=== PATIENT | male | born 1945 | race Caucasian/White ===

== ENCOUNTER 2016-06-20 22:01 | Emergency (ER) | payer BC, MEDICARE, OTHER ==
[~2016-06-20] VITALS: Ht 175.3 cm; Wt 107.4 kg
[~2016-06-20 22:01] MED LIST: ABLUNK PO; BUPR100T8 PO; CHOL100027 PO; MIRA1TAB3 PO; POLY335019 PO; PRAV40TA2 PO; ROPI2TAB6 PO; SERT1TAB68 PO
[2016-06-20 22:04] VITALS: TEMP 36.4; Ht 175.3 cm; Wt 107.4 kg
--- NOTE | 2016-06-20 22:24 | EMERGENCY ROOM VISIT NOTE ---
History Report prepared by Maura: Becki Nick Under the Supervision of: Dr. Sanya Bull M.D. First contact with patient: 22:08 Chief Complaint: CONSTIPATION Stated Complaint: CONSTIPATION History of Present Illness The patient is a 70 year old male who presents to the Emergency Room with complaints of worsening constipation with onset 3-4 days ago. He rates his discomfort as an 8/10. The patient has not had a bowel movement in the past 3-4 days. He states that this is not unusual for him. Usually, the patient states that he will strain to go. However, currently he is unable to strain as he had a bladder sling put in place one morning ago at [facility]. The patient states that he is able to urinate. For the constipation, the patient has tried taking a suppository and a stool softener without relief. The patient denies fever, vomiting. Onset: 3-4 days ago Position: abdomen Symptom Intensity: 8/10 Quality: other (constipation) Timing: worsening Associated Symptoms: No fevers, No vomiting Review of Systems See HPI for pertinent positives & negatives. A total of 10 systems reviewed and were otherwise negative. Past Medical & Surgical Medical Problems: (1) Prostate ca Family History No pertinent family history Social History Smoking Status: Never Smoker Drug Use: none Marital Status: Housing Status: lives with family Current/Historical Medications Scheduled Aripiprazole (Abilify), 2.5 MG PO QPM Bupropion (Wellbutrin Sr), 100 MG PO BID Cholecalciferol (Vitamin D 1000 Unit), 2,000 INTER.UNIT PO QAM Ketoconazole (Topical) (Nizoral), 1 APPLN TOP 2XWK Naproxen (Naprosyn), 500 MG PO BID Pravastatin Sodium (Pravastatin Sodium), 40 MG PO QAM Ropinirole (Requip), 2 MG PO HS Sennosides-Docusate Sodium (Senokot S), 1 TAB PO BID Sertraline Hcl (Zoloft), 100 MG PO QPM Sulfa/Trimethoprim (Bactrim Ds 800MG/160MG), 1 TAB PO DAILY Scheduled PRN Acetaminophen (Tylenol), 1,000 MG PO Q6H PRN for Pain or Fever Oxycodone Ir (Roxicodone Ir), 5 MG PO Q4H PRN for Severe Pain Polyethylene Glycol 3350 (Miralax), 1 TBS PO DAILY PRN for Constipation Allergies Coded Allergies: Animal Dander (Verified Allergy, Unknown, per allergy testing, 06/20/16) NO KNOWN DRUG ALLERGIES (Verified Allergy, Unknown, NKDA, 06/20/16) Physical Exam Vital Signs Date Time Temp Pulse Resp B/P Pulse Ox O2 Delivery O2 Flow Rate FiO2 06/21/16 00:48 90 16 182/87 98 Room Air 06/20/16 22:04 36.4 84 20 141/80 96 Room Air Physical Exam GENERAL: Patient is in no acute distress. HEENT: No acute trauma, normocephalic atraumatic, mucous membranes moist, no nasal congestion, no scleral icterus. NECK: No stridor, no adenopathy, no meningismus, trachea is midline. LUNGS: Clear to auscultation bilaterally, no wheeze, no rhonchi, breath sounds equal. HEART: 2/6 systolic murmur with a regular rate and rhythm. ABDOMEN: Soft, nontender, bowel sounds positive, no hernias, no peritonitis. EXTREMITIES: No cyanosis or edema, full range of motion of all the joints without pain or difficulty, no signs for acute trauma. NEUROLOGIC: Oriented x 3, no acute motor or sensory deficits, no focal weakness. SKIN: No rash, no jaundice, no diaphoresis. GROIN: Contusion to the scrotum consistent with recent surgery, no cellulitis. RECTAL: Hard stool in the rectal vault, consistent with constipation. Medical Decision & Procedures ED Course 2210: The patient was evaluated in room A11. A complete history and physical exam was performed. 0021: Nursing staff is still working on an enema for the patient. 0101: Nursing staff continues to work on the enema for the patient. 0123: Per nursing staff, the patient's constipation has now been resolved. 0142: Reevaluated the patient. Discussed results and discharge instructions: He verbalized understanding and agreement. The patient is ready for discharge. Medical Decision The patient is a 70 year old male who presents to the ED with complaints of constipation. Differential diagnoses considered include: bowel obstruction, perirectal abscess, hernia, constipation, urinary retention. The patient presents with complaints of constipation. There was hard stool in the rectal vault by exam, no perirectal abscess. He did not have peritonitis, he was not febrile or toxic. No cellulitis in the scrotal area. The patient was given a soaps suds enema, he eventually had a large bowel movement and feels markedly improved. He is being discharged home. He was encouraged to take Senokot twice a day to prevent further constipation. Impression Primary Impression: Constipation Scribe Attestation The scribe's documentation has been prepared under my direction and personally reviewed by me in its entirety. I confirm that the note above accurately reflects all work, treatment, procedures, and medical decision making performed by me. Departure Information Dispostion Home / Self-Care Prescriptions Sennosides-Docusate Sodium (SENOKOT S) 1 Tab Tab 1 TAB PO BID, #30 TAB Prov: Sanya Bull M.D. 06/21/16 Referrals No Doctor, Assigned (PCP) Forms HOME CARE DOCUMENTATION FORM, IMPORTANT VISIT INFORMATION Patient Instructions My [facility] Additional Instructions senokot 2x per day to keep stools moving return if worsening
[2016-06-21] MEDS ORDERED: ABL/5 PO (00:26)
[2016-06-21] MEDS ORDERED: NAPR-1169 PO (00:27)
[2016-06-21] MEDS ORDERED: ACET-1256 PO (00:30)
[2016-06-21] MEDS ORDERED: OXYC1TAB3 PO (00:31)
[2016-06-21] MEDS ORDERED: SULF800T23 PO (00:33)
[2016-06-21] MEDS ORDERED: KETO2SHA5 TOP (00:34)
[2016-06-21] MEDS ORDERED: SENN-65 PO (01:27)
[2016-06-21 01:52] VITALS: BP 153/70; PULSE 71; O2SAT 97
[2016-07-10] MEDS ORDERED: DOCU1TAB6 PO (10:55)
[2016-07-10] MEDS ORDERED: PSYL58.618 PO (10:55)
[2016-10-08] MEDS ORDERED: CHOL20009 PO (09:22)
[2016-10-08] MEDS ORDERED: OMEP20CA9 PO (09:22)
[2016-10-08] MEDS ORDERED: SERT-234 PO (09:22)
[2016-11-21] MEDS ORDERED: ACET-749 PO (08:38)
[2016-11-21] MEDS ORDERED: ABL/5 PO (08:38)
[2017-01-12] MEDS ORDERED: DXY100 PO (14:59)
== END 2016-06-21 01:59 | disposition home or self-care (01) ==
LOC: C.EDB 22:02 → C.EDA 06-21 01:59
DX: K59.00 Constipation, unspecified (principal); Z85.46 Personal history of malignant neoplasm of prostate; Z79.899 Other long term (current) drug therapy

== ENCOUNTER → 2016-07-17 | Day surgery (SDC) | payer MEDICARE ==
[2016-07-10 10:57] VITALS: BMI 33.0
[~2016-07-17] VITALS: Ht 175.3 cm; Wt 104.5 kg
[~2016-07-17] MED LIST changes: +ABL/5 PO; -ABLUNK PO; +ACET-1256 PO; +ACET-749 PO; +ARIP2TAB3 PO; +ATROPINE SULFATE 0.1 MG/ML 5ML SYR IV PRN; +CHOL20009 PO; +DOCU1TAB6 PO; +DXY100 PO; +EpHEDrine SULFATE INJ 50 MG/ML AMP IV PRN; +KETO2SHA5 TOP; +LIDOCAINE HCL 2% 2 ML VIAL (20MG/ML) ONE; +MELO7.5T5 PO; +MIDAZOLAM HCL 1 MG/ML 2ML VIAL ONE; -MIRA1TAB3 PO; +NAPR-1169 PO; +OMEP20CA9 PO; +ONDANSETRON INJ 2 MG/ML 2 ML VIAL ONE; +PROPOFOL IV EMULSION 10 MG/ML 20 ML VIAL IV ONE; +PSYL58.618 PO; +SERT-234 PO; +SODIUM CHLORIDE 0.9% 500ML 500 ML IV ONE; +WLLSR150 PO
[2016-07-17 10:24] VITALS: Ht 175.3 cm; Wt 104.5 kg
[2016-07-17 10:36] VITALS: TEMP 36.7
--- NOTE | 2016-07-17 11:01 | Endo History and Physical ---
History & Physical Date of Service: Jul 17, 2016. Chief Complaint: melena Referring Physician: Caesar MACIAS History of Present Illness 71 yo presenting for EGD due to melena Past Medical History Arthritis, Anxiety, Reflux, Cancer, High Cholesterol, Sleep Apnea, Depression Past Surgical History Hx Cardiac Surgery: No Hx Internal Defibrillator: No Hx Pacemaker: No Hx Abdominal Surgery: No Hx of Implantable Prosthesis: No Hx Post-Op Nausea and Vomiting: No Hx Cancer Surgery: Yes (PROSTATECTOMY, MELANOMA REMOVAL) Hx Thoracic Surgery: No Hx Orthopedic: No Hx Urinary Tract Surgery: Yes (CYSTOSCOPIES, BLADDER SLING) Family History None Social History Smoking Status: Never Smoker Hx Substance Use: No Hx Alcohol Use: Yes (OCCASIONAL) Allergies Coded Allergies: Animal Dander (Verified Allergy, Unknown, per allergy testing, 07/17/16) NO KNOWN DRUG ALLERGIES (Verified Allergy, Unknown, NKDA, 07/17/16) Current Medications Reported Home Medications Medications Dose Route/Sig Max Daily Dose Days Date Category Metamucil [employer] Fib (Psyllium) 63 % Pow 1 Tsp PO BID 07/10/16 Reported Docusate Sodium 100 Mg Tab 1 Tab PO BID 07/10/16 Reported Nizoral (Ketoconazole (Topical)) 2 % Sha 1 Appln TOP 2XWK 06/21/16 Reported Tylenol (Acetaminophen) 500 Mg Tab 1,000 Mg PO Q6H PRN 06/21/16 Reported Naprosyn (Naproxen) 500 Mg Tab 500 Mg PO BID 06/21/16 Reported Abilify (Aripiprazole) 5 Mg Tab 2.5 Mg PO QPM 06/21/16 Reported Wellbutrin Sr (Bupropion HCl) 100 Mg Ertab 100 Mg PO BID 04/20/14 Reported Miralax (Polyethylene Glycol 3350) 1 Pow Pow 1 Tbs PO DAILY PRN 04/03/14 Reported Zoloft (Sertraline Hcl) 100 Mg Tab 100 Mg PO QPM 04/03/14 Reported Requip (Ropinirole HCl) 2 Mg Tab 2 Mg PO TID 04/03/14 Reported Pravastatin Sodium 40 Mg Tab 40 Mg PO QAM 04/03/14 Reported Vitamin D 1000 Unit (Cholecalciferol) 1,000 Unit Cap 2,000 Inter.unit PO QAM 07/16/11 Reported Vital Signs Weight (Kilograms): 104.55 Height (Feet): 5 Height (Inches): 9 Date Time Temp Pulse Resp B/P Pulse Ox O2 Delivery O2 Flow Rate FiO2 07/17/16 10:36 36.7 74 18 141/74 97 Room Air Physical Exam General Appearance: WD/WN, no apparent distress Respiratory/Chest: Respiratory effort: no dyspnea Auscultation: breath sounds normal, CTA except as noted, no wheezing Cardiovascular: Apical Impulse: not displaced Heart Auscultation: RRR, normal S1, normal S2 Abdomen: Bowel Sounds: normal Inspection & Palpation: soft, non-distended Assessment and Plan 71 yo presenting for EGD for melena
--- NOTE | 2016-07-17 11:20 | GI REPORT ---
Procedure Date: 07/17/2016 10:42 AM Procedure: Upper GI endoscopy Indications: Melena Medicines: General Anesthesia Complications: No immediate complications. Estimated blood loss: None. Estimated Blood Loss: Estimated blood loss: none. Procedure: Pre-Anesthesia Assessment: - Pre-Anesthesia Assessment: - Prior to the procedure, a History and Physical was performed, and patient medications, allergies and sensitivities were reviewed. The patient's tolerance of previous anesthesia was reviewed. Please see Photorank for complete details. - The risks and benefits of the procedure and the sedation options and risks were discussed with the patient. All questions were answered and informed consent was obtained. - Patient identification and proposed procedure were verified prior to the procedure by the physician and the nurse. The procedure was verified in the pre-procedure area in the procedure room. After obtaining informed consent, the endoscope was passed carefully and meticuously under direct vision and only advanced when the lumen was clearly identified, C02 insuflation was utilized throughout the entirity of the procedure. Throughout the procedure, the patient's blood pressure, pulse, and oxygen saturations were monitored continuously. After obtaining informed consent, the endoscope was passed under direct vision. Throughout the procedure, the patient's blood pressure, pulse, and oxygen saturations were monitored continuously. The Scope was introduced through the mouth, and advanced to the second part of duodenum. The upper GI endoscopy was accomplished without difficulty. The patient tolerated the procedure well. Findings: The examined esophagus was normal. One non-bleeding superficial gastric ulcer with a clean ulcer base (Migel Class III) was found in the prepyloric region of the stomach. The lesion was 3 mm in largest dimension. The examined duodenum was normal. No other significant abnormalities were identified in a careful examination of the stomach. Biopsies were taken with a cold forceps for Helicobacter pylori testing. Impression: - Normal esophagus. - Non-bleeding gastric ulcer with a clean ulcer base (Migel Class III). - Normal examined duodenum. - Biopsies were taken with a cold forceps for Helicobacter pylori testing. Recommendation: - Await pathology results. - Discharge patient to home (with escort). - Use Prilosec (omeprazole) 20 mg PO BID for 2 months. - Avoid NSAIDs Yuan Castro MD 07/17/2016 11:19:37 AM This report has been signed electronically. Note Initiated On: 07/17/2016 10:42 AM I attest to the content of the Intraoperative Record and orders documented therein, exceptions below
--- NOTE | 2016-07-17 11:23 | Discharge Instructions ---
Endoscopy Patient Instructions Date / Procedure(s) Performed Jul 17, 2016. EGD Allergy Information Coded Allergies: Animal Dander (Verified Allergy, Unknown, per allergy testing, 07/17/16) NO KNOWN DRUG ALLERGIES (Verified Allergy, Unknown, NKDA, 07/17/16) Discharge Date / Findings Jul 17, 2016. One small gastric ulcer-likely cause of symptoms-biopsied Recommendations - Await pathology results. - Discharge to home (with escort). - Increase Prilosec (omeprazole) 20 mg PO BID for 2 months. - Avoid NSAIDs Provider Instructions Activity Restrictions - No exercising or heavy lifting for 24 hours. - Do not drink alcohol the day of the procedure. - Do not drive a car or operate machinery until the day after the procedure. - Do not make any important decisions or sign important papers in 24 hours after the procedure. Following Day: - Return to full activity which may include returning to work/school. Diet Start your diet with liquids and light foods (jello, soup, juice, toast). Then eat your usual diet if not nauseated. Treatment For Common After Affects For mild abdominal pain, bloating, or excessive gas: - Rest - Eat lightly - Lie on right side Follow-Up Information Follow-up with A Stefani MACIAS as scheduled Anesthesia Information What You Should Know You have had a procedure that required some medicine to reduce anxiety and discomfort. This treatment is called moderate sedation. After receiving the treatment, you may be sleepy, but you will be able to breathe on your own. The effects of the treatment may last for several hours. Follow these instructions along with Activity/Diet recommendations noted above: * Do NOT do anything where dizziness or clumsiness would be dangerous. * Rest quietly at home today, then you can be up and about tomorrow. * Have a responsible person stay with you the rest of today. * You may have had an I.V. today. If so, you may take the dressing off later today. Recommendations Call your doctor if: * Trouble breathing * Continuous vomiting for more than 24 hours * Temperature above 101 degrees * Severe abdominal pain or bloating * Pain not relieved by pain medicine ordered * There is increased drainage or redness from any incision * A large amount of rectal bleeding greater than 2-3 tablespoons. (If you had a polyp/s removed or have hemorrhoids, a small amount of blood - from the rectum is to be expected.) * You have any unanswered questions or concerns. IN THE EVENT OF A SERIOUS EMERGENCY, GO TO THE NEAREST EMERGENCY ROOM Your discharge instructions were prepared by provider Yuan Castro. Patient Instructions Signature Page Jeremy Mccullough Patient (or Guardian) Signature/Date: I have read and understand the instructions given to me by my caregivers. Caregiver/RN/Doctor Signature/Date: The above-named patient and/or guardian has received patient instructions on this date. + Original Patient Signature Page (only) stays with chart. Please make copy for patient.
--- NOTE | 2016-07-17 11:28 | Anesthesiology Progress Note ---
Anesthesia Post Op Note Date & Time Jul 17, 2016 at 11:27 Vital Signs Pain Intensity: 0 Vital Signs Past 12 Hours Date Time Temp Pulse Resp B/P Pulse Ox O2 Delivery O2 Flow Rate FiO2 07/17/16 11:21 69 18 106/63 96 Room Air 07/17/16 10:36 36.7 74 18 141/74 97 Room Air Notes Mental Status: alert / awake / arousable, participated in evaluation Pt Amnestic to Procedure: Yes Nausea / Vomiting: adequately controlled Pain: adequately controlled Airway Patency, RR, SpO2: stable & adequate BP & HR: stable & adequate Hydration State: stable & adequate Anesthetic Complications: no major complications apparent
[2016-07-17 11:51] VITALS: BP 122/67; PULSE 68; O2SAT 96
== END | disposition home or self-care (01) ==
LOC: C.GI 10:12
PROVIDERS: ATTEND Internal Medicine
DX: K92.1 Melena (principal); K25.9 Gastric ulcer, unspecified as acute or chronic, without hemorrhage or perforation; K29.50 Unspecified chronic gastritis without bleeding; I10 Essential (primary) hypertension; E78.5 Hyperlipidemia, unspecified; E78.00 Pure hypercholesterolemia, unspecified; F32.9 Major depressive disorder, single episode, unspecified; Z79.899 Other long term (current) drug therapy; Z85.46 Personal history of malignant neoplasm of prostate; G47.33 Obstructive sleep apnea (adult) (pediatric); E66.9 Obesity, unspecified; Z68.33 Body mass index [BMI] 33.0-33.9, adult; Z90.89 Acquired absence of other organs; Z98.890 Other specified postprocedural states

== ENCOUNTER → 2016-10-16 | Day surgery (SDC) | payer MEDICARE ==
[2016-10-08 09:22] VITALS: Ht 176.5 cm; Wt 104.5 kg
[~2016-10-16] VITALS: Ht 176.5 cm; Wt 104.5 kg
[~2016-10-16] MED LIST changes: -ARIP2TAB3 PO; -ATROPINE SULFATE 0.1 MG/ML 5ML SYR IV PRN; -CHOL100027 PO; -DXY100 PO; -EpHEDrine SULFATE INJ 50 MG/ML AMP IV PRN; -MELO7.5T5 PO; -MIDAZOLAM HCL 1 MG/ML 2ML VIAL ONE; -NAPR-1169 PO; -ONDANSETRON INJ 2 MG/ML 2 ML VIAL ONE; -SERT1TAB68 PO; -WLLSR150 PO
--- NOTE | 2016-10-16 10:10 | Endo History and Physical ---
History & Physical Date of Service: Oct 16, 2016. Chief Complaint: black stools, constipation Referring Physician: Dr. Sigala History of Present Illness 71 yo presenting for colonoscopy for rectal bleeding and constipation-no alarm symptoms. Past Medical History Arthritis, Anxiety, Reflux, Cancer, High Cholesterol, Sleep Apnea, Depression Past Surgical History Hx Cardiac Surgery: No Hx Internal Defibrillator: No Hx Pacemaker: No Hx Abdominal Surgery: No Hx of Implantable Prosthesis: No Hx Post-Op Nausea and Vomiting: No Hx Cancer Surgery: Yes (PROSTATECTOMY, MELANOMA REMOVAL) Hx Thoracic Surgery: No Hx Orthopedic: No Hx Urinary Tract Surgery: Yes (CYSTOSCOPIES, BLADDER SLING) Family History None Social History Smoking Status: Never Smoker Hx Substance Use: No Hx Alcohol Use: Yes (OCCASIONAL) Allergies Coded Allergies: Animal Dander (Verified Allergy, Unknown, per allergy testing, 10/16/16) NO KNOWN DRUG ALLERGIES (Verified Allergy, Unknown, NKDA, 10/16/16) Current Medications Reported Home Medications Medications Dose Route/Sig Max Daily Dose Days Date Category Zoloft (Sertraline HCl) 100 Mg Tab 100 Mg PO QAM 10/08/16 Reported Vitamin D (Cholecalciferol) 2,000 Unit Tab 1 Tab PO QAM 10/08/16 Reported Prilosec (Omeprazole) 20 Mg Cap 20 Mg PO BID 10/08/16 Reported Metamucil [employer] Fib (Psyllium) 63 % Pow 1 Tsp PO BID 07/10/16 Reported Docusate Sodium 100 Mg Tab 1 Tab PO BID 07/10/16 Reported Nizoral (Ketoconazole (Topical)) 2 % Sha 1 Appln TOP 2XWK 06/21/16 Reported Tylenol (Acetaminophen) 500 Mg Tab 1,000 Mg PO Q6H PRN 06/21/16 Reported Abilify (Aripiprazole) 5 Mg Tab 2.5 Mg PO QPM 06/21/16 Reported Wellbutrin Sr (Bupropion HCl) 100 Mg Ertab 100 Mg PO BID 04/20/14 Reported Miralax (Polyethylene Glycol 3350) 1 Pow Pow 1 Tbs PO DAILY PRN 04/03/14 Reported Requip (Ropinirole HCl) 2 Mg Tab 2 Mg PO TID 04/03/14 Reported Pravastatin Sodium 40 Mg Tab 40 Mg PO QAM 04/03/14 Reported Vital Signs Weight (Kilograms): 104.55 Height (Feet): 5 Height (Inches): 9.5 Date Time Temp Pulse Resp B/P (MAP) Pulse Ox O2 Delivery O2 Flow Rate FiO2 10/16/16 09:45 37 65 16 131/83 (99) 97 Room Air Physical Exam General Appearance: WD/WN, no apparent distress Respiratory/Chest: Respiratory effort: no dyspnea Auscultation: breath sounds normal, CTA except as noted, no wheezing Cardiovascular: Apical Impulse: not displaced Heart Auscultation: RRR, normal S1, normal S2 Abdomen: Bowel Sounds: normal Inspection & Palpation: soft, non-distended Assessment and Plan 71 yo presenting for colonoscopy for rectal bleeding
--- NOTE | 2016-10-16 11:00 | GI REPORT ---
Procedure Date: 10/16/2016 10:06 AM Procedure: Colonoscopy Indications: Change in bowel habits, Constipation Medicines: General Anesthesia Complications: No immediate complications. Estimated blood loss: None. Estimated Blood Loss: Estimated blood loss: none. Procedure: Pre-Anesthesia Assessment: - Pre-Anesthesia Assessment: - Prior to the procedure, a History and Physical was performed, and patient medications, allergies and sensitivities were reviewed. The patient's tolerance of previous anesthesia was reviewed. Please see bContext for complete details. - The risks and benefits of the procedure and the sedation options and risks were discussed with the patient. All questions were answered and informed consent was obtained. - Patient identification and proposed procedure were verified prior to the procedure by the physician and the nurse. The procedure was verified in the pre-procedure area in the procedure room. After obtaining informed consent, the endoscope was passed carefully and meticuously under direct vision and only advanced when the lumen was clearly identified, C02 insuflation was utilized throughout the entirity of the procedure. Throughout the procedure, the patient's blood pressure, pulse, and oxygen saturations were monitored continuously. After I obtained informed consent, the scope was passed under direct vision. Throughout the procedure, the patient's blood pressure, pulse, and oxygen saturations were monitored continuously. The scope was introduced through the anus and advanced to the hepatic flexure. The colonoscopy was performed without difficulty. The patient tolerated the procedure well. The quality of the bowel preparation was inadequate. Findings: Stool was found in the entire colon. A 3 mm polyp was found in the descending colon. The polyp was sessile. The polyp was removed with a cold snare. Resection and retrieval were complete. Impression: - Preparation of the colon was inadequate. - Stool in the entire examined colon. - One 3 mm polyp in the descending colon, removed with a cold snare. Resected and retrieved. Recommendation: - Await pathology results. - Repeat colonoscopy with 2 day prep at appointment to be scheduled because the bowel preparation was poor. Yuan Castro MD 10/16/2016 11:00:13 AM This report has been signed electronically. Note Initiated On: 10/16/2016 10:06 AM I attest to the content of the Intraoperative Record and orders documented therein, exceptions below
--- NOTE | 2016-10-16 11:04 | Discharge Instructions ---
Endoscopy Patient Instructions Date / Procedure(s) Performed Oct 16, 2016. Colonoscopy Allergy Information Coded Allergies: Animal Dander (Verified Allergy, Unknown, per allergy testing, 10/16/16) NO KNOWN DRUG ALLERGIES (Verified Allergy, Unknown, NKDA, 10/16/16) Discharge Date / Findings Oct 16, 2016. Poor Prep leading to an incomplete examination Procedure will need to be rescheduled due to prep quality One small polyp removed Miralax once daily to twice daily for constipation in the interim. Provider Instructions Activity Restrictions - No exercising or heavy lifting for 24 hours. - Do not drink alcohol the day of the procedure. - Do not drive a car or operate machinery until the day after the procedure. - Do not make any important decisions or sign important papers in 24 hours after the procedure. Following Day: - Return to full activity which may include returning to work/school. Diet Start your diet with liquids and light foods (jello, soup, juice, toast). Then eat your usual diet if not nauseated. Treatment For Common After Affects For mild abdominal pain, bloating, or excessive gas: - Rest - Eat lightly - Lie on right side Follow-Up Information Follow-up with Dr. Sigala as scheduled Anesthesia Information What You Should Know You have had a procedure that required some medicine to reduce anxiety and discomfort. This treatment is called moderate sedation. After receiving the treatment, you may be sleepy, but you will be able to breathe on your own. The effects of the treatment may last for several hours. Follow these instructions along with Activity/Diet recommendations noted above: * Do NOT do anything where dizziness or clumsiness would be dangerous. * Rest quietly at home today, then you can be up and about tomorrow. * Have a responsible person stay with you the rest of today. * You may have had an I.V. today. If so, you may take the dressing off later today. Recommendations Call your doctor if: * Trouble breathing * Continuous vomiting for more than 24 hours * Temperature above 101 degrees * Severe abdominal pain or bloating * Pain not relieved by pain medicine ordered * There is increased drainage or redness from any incision * A large amount of rectal bleeding greater than 2-3 tablespoons. (If you had a polyp/s removed or have hemorrhoids, a small amount of blood - from the rectum is to be expected.) * You have any unanswered questions or concerns. IN THE EVENT OF A SERIOUS EMERGENCY, GO TO THE NEAREST EMERGENCY ROOM Your discharge instructions were prepared by provider Yuan Castro. Patient Instructions Signature Page Jeremy Mccullough Patient (or Guardian) Signature/Date: I have read and understand the instructions given to me by my caregivers. Caregiver/RN/Doctor Signature/Date: The above-named patient and/or guardian has received patient instructions on this date. + Original Patient Signature Page (only) stays with chart. Please make copy for patient.
--- NOTE | 2016-10-16 11:16 | Anesthesiology Progress Note ---
Anesthesia Post Op Note Date & Time Oct 16, 2016 at 11:16 Vital Signs Pain Intensity: 0 Vital Signs Past 12 Hours Date Time Temp Pulse Resp B/P (MAP) Pulse Ox O2 Delivery O2 Flow Rate FiO2 10/16/16 11:13 70 18 138/92 (107) 97 Room Air 10/16/16 10:57 71 16 119/66 (83) 97 Room Air 10/16/16 09:45 37 65 16 131/83 (99) 97 Room Air Notes Mental Status: alert / awake / arousable, participated in evaluation Pt Amnestic to Procedure: Yes Nausea / Vomiting: adequately controlled Pain: adequately controlled Airway Patency, RR, SpO2: stable & adequate BP & HR: stable & adequate Hydration State: stable & adequate Anesthetic Complications: no major complications apparent
[2016-10-16 11:35] VITALS: BP 145/91; PULSE 71; O2SAT 97
== END | disposition home or self-care (01) ==
LOC: C.GI 09:23
PROVIDERS: ATTEND Internal Medicine
DX: K62.5 Hemorrhage of anus and rectum (principal); K59.00 Constipation, unspecified; D12.4 Benign neoplasm of descending colon; M19.90 Unspecified osteoarthritis, unspecified site; K21.9 Gastro-esophageal reflux disease without esophagitis; E78.00 Pure hypercholesterolemia, unspecified; G47.30 Sleep apnea, unspecified; F32.9 Major depressive disorder, single episode, unspecified; Z90.79 Acquired absence of other genital organ(s); Z85.820 Personal history of malignant melanoma of skin

== ENCOUNTER → 2016-11-27 | Day surgery (SDC) | payer MEDICARE ==
[2016-11-21 08:39] VITALS: Ht 176.5 cm; Wt 104.5 kg
[~2016-11-27] VITALS: Ht 176.5 cm; Wt 104.5 kg
[~2016-11-27] MED LIST changes: -ACET-1256 PO; -PSYL58.618 PO
[2016-11-27 08:57] VITALS: TEMP 36.1
--- NOTE | 2016-11-27 09:06 | Endo History and Physical ---
History & Physical Date of Service: Nov 27, 2016. Chief Complaint: MELENA Referring Physician: DR SANTORO History of Present Illness 71 yo presenting for EGD and Colonoscopy for melena-no current symptoms. Past Medical History Arthritis, Anxiety, Reflux, Cancer, High Cholesterol, Sleep Apnea, Depression Past Surgical History Hx Cardiac Surgery: No Hx Internal Defibrillator: No Hx Pacemaker: No Hx Abdominal Surgery: No Hx Post-Op Nausea and Vomiting: No Hx Cancer Surgery: Yes (PROSTATECTOMY, MELANOMA REMOVAL) Hx Thoracic Surgery: No Hx Orthopedic: No Hx Urinary Tract Surgery: Yes (CYSTOSCOPIES, BLADDER SLING) Family History None Social History Smoking Status: Never Smoker Hx Substance Use: No Hx Alcohol Use: Yes (OCCASIONAL) Allergies Coded Allergies: Animal Dander (Verified Allergy, Unknown, per allergy testing, 11/27/16) NO KNOWN DRUG ALLERGIES (Verified Allergy, Unknown, NKDA, 11/27/16) Current Medications Reported Home Medications Medications Dose Route/Sig Max Daily Dose Days Date Category Abilify (Aripiprazole) 5 Mg Tab 5 Mg PO QPM 11/21/16 Reported Zoloft (Sertraline HCl) 100 Mg Tab 100 Mg PO HS 10/08/16 Reported Vitamin D (Cholecalciferol) 2,000 Unit Tab 1 Tab PO QAM 10/08/16 Reported Prilosec (Omeprazole) 20 Mg Cap 20 Mg PO BID 10/08/16 Reported Docusate Sodium 100 Mg Tab 1 Tab PO BID 07/10/16 Reported Nizoral (Ketoconazole (Topical)) 2 % Sha 1 Appln TOP 2XWK PRN 06/21/16 Reported Wellbutrin Sr (Bupropion HCl) 100 Mg Ertab 100 Mg PO BID 04/20/14 Reported Miralax (Polyethylene Glycol 3350) 1 Pow Pow 2 Dose PO BID 04/03/14 Reported Requip (Ropinirole HCl) 2 Mg Tab 2 Mg PO TID 04/03/14 Reported Pravastatin Sodium 40 Mg Tab 40 Mg PO QAM 04/03/14 Reported Vital Signs Weight (Kilograms): 104.55 Height (Feet): 5 Height (Inches): 9.5 Date Time Temp Pulse Resp B/P (MAP) Pulse Ox O2 Delivery O2 Flow Rate FiO2 11/27/16 08:57 36.1 75 20 149/76 (100) 99 Room Air Physical Exam General Appearance: WD/WN, no apparent distress Respiratory/Chest: Respiratory effort: no dyspnea Auscultation: breath sounds normal, CTA except as noted Cardiovascular: Apical Impulse: not displaced Heart Auscultation: RRR, normal S1, normal S2 Abdomen: Bowel Sounds: normal Inspection & Palpation: soft Assessment and Plan 71 yo presenting for EGD/Colonoscopy for melena
--- NOTE | 2016-11-27 10:18 | Discharge Instructions ---
Endoscopy Patient Instructions Date / Procedure(s) Performed Nov 27, 2016. Colonoscopy, EGD Allergy Information Coded Allergies: Animal Dander (Verified Allergy, Unknown, per allergy testing, 11/27/16) NO KNOWN DRUG ALLERGIES (Verified Allergy, Unknown, NKDA, 11/27/16) Discharge Date / Findings Nov 27, 2016. EGD -Normal Exam -No evidence of active or recent bleeding Colonoscopy -Suboptimal prep -No evidence of active or recent bleeding -Two small polyps were completely removed You will be contacted on pathology results Provider Instructions Activity Restrictions - No exercising or heavy lifting for 24 hours. - Do not drink alcohol the day of the procedure. - Do not drive a car or operate machinery until the day after the procedure. - Do not make any important decisions or sign important papers in 24 hours after the procedure. Following Day: - Return to full activity which may include returning to work/school. Diet Start your diet with liquids and light foods (jello, soup, juice, toast). Then eat your usual diet if not nauseated. Treatment For Common After Affects For mild abdominal pain, bloating, or excessive gas: - Rest - Eat lightly - Lie on right side Follow-Up Information Follow-up with DR SANTORO as scheduled Anesthesia Information What You Should Know You have had a procedure that required some medicine to reduce anxiety and discomfort. This treatment is called moderate sedation. After receiving the treatment, you may be sleepy, but you will be able to breathe on your own. The effects of the treatment may last for several hours. Follow these instructions along with Activity/Diet recommendations noted above: * Do NOT do anything where dizziness or clumsiness would be dangerous. * Rest quietly at home today, then you can be up and about tomorrow. * Have a responsible person stay with you the rest of today. * You may have had an I.V. today. If so, you may take the dressing off later today. Recommendations Call your doctor if: * Trouble breathing * Continuous vomiting for more than 24 hours * Temperature above 101 degrees * Severe abdominal pain or bloating * Pain not relieved by pain medicine ordered * There is increased drainage or redness from any incision * A large amount of rectal bleeding greater than 2-3 tablespoons. (If you had a polyp/s removed or have hemorrhoids, a small amount of blood - from the rectum is to be expected.) * You have any unanswered questions or concerns. IN THE EVENT OF A SERIOUS EMERGENCY, GO TO THE NEAREST EMERGENCY ROOM Your discharge instructions were prepared by provider Yuan Castro. Patient Instructions Signature Page Jeremy Mccullough Patient (or Guardian) Signature/Date: I have read and understand the instructions given to me by my caregivers. Caregiver/RN/Doctor Signature/Date: The above-named patient and/or guardian has received patient instructions on this date. + Original Patient Signature Page (only) stays with chart. Please make copy for patient.
--- NOTE | 2016-11-27 10:23 | Anesthesiology Progress Note ---
Anesthesia Post Op Note Date & Time Nov 27, 2016 at 10:23 Vital Signs Pain Intensity: 0 Vital Signs Past 12 Hours Date Time Temp Pulse Resp B/P (MAP) Pulse Ox O2 Delivery O2 Flow Rate FiO2 11/27/16 10:04 72 20 111/62 (78) 95 Room Air 11/27/16 08:57 36.1 75 20 149/76 (100) 99 Room Air Notes Mental Status: alert / awake / arousable, participated in evaluation Pt Amnestic to Procedure: Yes Nausea / Vomiting: adequately controlled Pain: adequately controlled Airway Patency, RR, SpO2: stable & adequate BP & HR: stable & adequate Hydration State: stable & adequate Anesthetic Complications: no major complications apparent
--- NOTE | 2016-11-27 10:33 | GI REPORT ---
Procedure Date: 11/27/2016 9:03 AM Procedure: Upper GI endoscopy Indications: Melena Medicines: General Anesthesia Complications: No immediate complications. Estimated blood loss: None. Estimated Blood Loss: Estimated blood loss: none. Procedure: Pre-Anesthesia Assessment: - Pre-Anesthesia Assessment: - Prior to the procedure, a History and Physical was performed, and patient medications, allergies and sensitivities were reviewed. The patient's tolerance of previous anesthesia was reviewed. Please see [employer] for complete details. - The risks and benefits of the procedure and the sedation options and risks were discussed with the patient. All questions were answered and informed consent was obtained. - Patient identification and proposed procedure were verified prior to the procedure by the physician and the nurse. The procedure was verified in the pre-procedure area in the procedure room. After obtaining informed consent, the endoscope was passed carefully and meticuously under direct vision and only advanced when the lumen was clearly identified, C02 insuflation was utilized throughout the entirity of the procedure. Throughout the procedure, the patient's blood pressure, pulse, and oxygen saturations were monitored continuously. After obtaining informed consent, the endoscope was passed under direct vision. Throughout the procedure, the patient's blood pressure, pulse, and oxygen saturations were monitored continuously. The scope was introduced through the mouth, and advanced to the second part of duodenum. The upper GI endoscopy was accomplished without difficulty. The patient tolerated the procedure well. Findings: The examined esophagus was normal. The entire examined stomach was normal. Biopsies were taken with a cold forceps for Helicobacter pylori testing. The examined duodenum was normal. Impression: - Normal esophagus. - Normal stomach. Biopsied. - Normal examined duodenum. Recommendation: - Await pathology results. - Perform a colonoscopy today. Yuan Castro MD 11/27/2016 10:03:01 AM This report has been signed electronically. Note Initiated On: 11/27/2016 9:03 AM I attest to the content of the Intraoperative Record and orders documented therein, exceptions below
--- NOTE | 2016-11-27 10:34 | GI REPORT ---
Procedure Date: 11/27/2016 9:22 AM Procedure: Colonoscopy Indications: Melena Medicines: General Anesthesia Complications: No immediate complications. Estimated blood loss: None. Estimated Blood Loss: Estimated blood loss was minimal. Procedure: Pre-Anesthesia Assessment: - Pre-Anesthesia Assessment: - Prior to the procedure, a History and Physical was performed, and patient medications, allergies and sensitivities were reviewed. The patient's tolerance of previous anesthesia was reviewed. Please see [employer] for complete details. - The risks and benefits of the procedure and the sedation options and risks were discussed with the patient. All questions were answered and informed consent was obtained. - Patient identification and proposed procedure were verified prior to the procedure by the physician and the nurse. The procedure was verified in the pre-procedure area in the procedure room. After obtaining informed consent, the endoscope was passed carefully and meticuously under direct vision and only advanced when the lumen was clearly identified, C02 insuflation was utilized throughout the entirity of the procedure. Throughout the procedure, the patient's blood pressure, pulse, and oxygen saturations were monitored continuously. After I obtained informed consent, the scope was passed under direct vision. Throughout the procedure, the patient's blood pressure, pulse, and oxygen saturations were monitored continuously. The scope was introduced through the anus and advanced to the terminal ileum, with identification of the appendiceal orifice and IC valve. The colonoscopy was performed without difficulty. The patient tolerated the procedure well. The quality of the bowel preparation was poor. Findings: Copious quantities of semi-liquid stool was found in the entire colon, precluding visualization. Lavage of the area was performed using copious amounts of sterile water, resulting in incomplete clearance with fair visualization. Two sessile polyps were found in the cecum. The polyps were 2 to 3 mm in size. These polyps were removed with a cold snare. Resection and retrieval were complete. Multiple small-mouthed diverticula were found in the sigmoid colon. Internal hemorrhoids were found during retroflexion. The terminal ileum appeared normal. No evidence of Melanic stool Impression: - Preparation of the colon was poor. - Stool in the entire examined colon. - Two 2 to 3 mm polyps in the cecum, removed with a cold snare. Resected and retrieved. - Diverticulosis in the sigmoid colon. - Internal hemorrhoids. Recommendation: - Discharge patient to home (with escort). - Repeat colonoscopy in 5 years for surveillance based on pathology results. - Continue present medications. Yuan Castro MD 11/27/2016 10:06:15 AM This report has been signed electronically. Note Initiated On: 11/27/2016 9:22 AM I attest to the content of the Intraoperative Record and orders documented therein, exceptions below
[2016-11-27 10:35] VITALS: BP 116/70; PULSE 71; O2SAT 99
== END | disposition home or self-care (01) ==
LOC: C.GI 08:31
PROVIDERS: ATTEND Internal Medicine
DX: K29.50 Unspecified chronic gastritis without bleeding (principal); D12.0 Benign neoplasm of cecum; K57.30 Diverticulosis of large intestine without perforation or abscess without bleeding; K64.8 Other hemorrhoids; K92.1 Melena; G47.33 Obstructive sleep apnea (adult) (pediatric)

== ENCOUNTER 2017-01-11 13:13 | Observation (INO) | payer MEDICARE ==
[~2017-01-11] VITALS: Ht 175.3 cm; Wt 105.6 kg
[~2017-01-11 13:13] MED LIST changes: -LIDOCAINE HCL 2% 2 ML VIAL (20MG/ML) ONE; -PROPOFOL IV EMULSION 10 MG/ML 20 ML VIAL IV ONE; -SODIUM CHLORIDE 0.9% 500ML 500 ML IV ONE
[2017-01-11] MEDS ORDERED: PIPERACILLIN/TAZOBACTAM 4.5 GM/100ML D5W IV STA (13:34)
[2017-01-11] MEDS ORDERED: SODIUM CHLORIDE 0.9% 1000ML 1,000 ML IV ONE (13:34)
[2017-01-11] MEDS ORDERED: ACETAMINOPHEN 500 MG TAB PO STA (13:34)
--- NOTE | 2017-01-11 13:39 | EMERGENCY ROOM VISIT NOTE ---
History Report prepared by Maura: Camden Neri Under the Supervision of: Dr. Sanya Bull M.D. First contact with patient: 13:25 Chief Complaint: FALL Stated Complaint: FALL History of Present Illness The patient is a 71 year old male who presents to the Emergency Room with complaints of a fall that occurred earlier today. Yesterday, the patient was trimming trees around his house outside for most of the day. Afterward, he was more tired than usual when he went to bed. He woke up this morning experiencing some body aches and difficulty walking. The patient was then reaching for something while sitting in his computer chair. He accidently fell forward out of his chair. He denies any trauma, head injury, loss of consciousness, or weakness. He could not get up on his own, so his family called EMS. He denies any cough, congestion, shortness of breath, sore throat, vomiting, diarrhea, abnormal urinary symptoms, or rash. Per triage, the patient is febrile. He has a history of a prostatectomy. He notes that he pulled a tick off of his left shoulder four days ago. His family notes that he has seemed mildly confused since this morning. Source of History: patient Onset: Earlier today Position: other (Global) Symptom Intensity: mild Quality: other (Fall) Timing: constant Associated Symptoms: + fevers, No LOC, No headache, No sorethroat, No cough , No SOB, No vomiting, No diarrhea, No urinary symptoms, No weakness, No rash Review of Systems See HPI for pertinent positives & negatives. A total of 10 systems reviewed and were otherwise negative. Past Medical & Surgical Medical Problems: (1) Prostate ca Surgical Problems: (1) History of prostatectomy Family History No pertinent family history Social History Smoking Status: Never Smoker Drug Use: none Marital Status: Housing Status: lives with family Current/Historical Medications Scheduled Aripiprazole (Abilify), 2 MG PO HS Bupropion HCl (Bupropion HCl Sr), 150 MG PO BID Cholecalciferol (Vitamin D), 1 TAB PO QAM Docusate Sodium (Docusate Sodium), 1 TAB PO BID Meloxicam (Mobic), 7.5 MG PO DAILY Omeprazole (Prilosec), 20 MG PO BID Polyethylene Glycol 3350 (Miralax), 2 DOSE PO BID Pravastatin Sodium (Pravastatin Sodium), 40 MG PO QAM Ropinirole (Requip), 2 MG PO TID Sertraline (Zoloft), 100 MG PO HS Allergies Coded Allergies: Animal Dander (Verified Allergy, Unknown, per allergy testing, 01/11/17) NO KNOWN DRUG ALLERGIES (Verified Allergy, Unknown, NKDA, 01/11/17) Physical Exam Vital Signs Date Time Temp Pulse Resp B/P (MAP) Pulse Ox O2 Delivery O2 Flow Rate FiO2 01/11/17 16:34 86 112/58 89 107/62 01/11/17 16:09 85 18 124/73 94 Room Air 01/11/17 14:27 94 20 130/74 92 Room Air 01/11/17 13:41 93 Room Air 01/11/17 13:25 95 01/11/17 13:18 38.5 102 18 139/71 96 Room Air Physical Exam GENERAL: Patient is in no acute distress. HEENT: No acute trauma, normocephalic atraumatic, mucous membranes dry, no nasal congestion, no scleral icterus. NECK: No stridor, no adenopathy, no meningismus, trachea is midline. LUNGS: Clear to auscultation bilaterally, no wheeze, no rhonchi, breath sounds equal. HEART: There is a 3/6 systolic murmur. Regular rate and rhythm. ABDOMEN: Soft, nontender, bowel sounds positive, no hernias, no peritonitis. EXTREMITIES: No cyanosis or edema, full range of motion of all the joints without pain or difficulty, no signs for acute trauma. NEUROLOGIC: Oriented x 3, no acute motor or sensory deficits, no focal weakness. SKIN: No rash, no jaundice, no diaphoresis. Medical Decision & Procedures ER Provider Diagnostic Interpretation: Radiology results as stated below per my review and radiologist interpretation: CHEST ONE VIEW PORTABLE CLINICAL HISTORY: Sepsis TRAUMA COMPARISON STUDY: 05/10/2015 FINDINGS: The cardiac and mediastinal contours remain stable. There is no failure. There is no focal pulmonary consolidation. There are no pleural effusions. No pneumothorax is evident.[ IMPRESSION: No active disease in the chest. Electronically signed by: Luis Gomez M.D. 01/11/2017 2:32 PM Dictated Date/Time: 01/11/2017 2:31 PM Laboratory Results 01/11/17 13:55 Red Blood Count 4.79, Mean Corpuscular Volume 89.1, Mean Corpuscular Hemoglobin 30.9, Mean Corpuscular Hemoglobin Concent 34.7, Mean Platelet Volume 9.2, Neutrophils (%) (Auto) 89.4, Lymphocytes (%) (Auto) 5.5, Monocytes (%) (Auto) 4.4, Eosinophils (%) (Auto) 0.0, Basophils (%) (Auto) 0.1, Neutrophils # (Auto) 7.85, Lymphocytes # (Auto) 0.48, Monocytes # (Auto) 0.39, Eosinophils # (Auto) 0.00, Basophils # (Auto) 0.01 01/11/17 13:55 Test 01/11/17 13:55 01/11/17 14:02 01/11/17 14:37 01/11/17 15:54 White Blood Count 8.78 K/uL (4.8-10.8) Red Blood Count 4.79 M/uL (4.7-6.1) Hemoglobin 14.8 g/dL (14.0-18.0) Hematocrit 42.7 % (42-52) Mean Corpuscular Volume 89.1 fL (80-100) Mean Corpuscular Hemoglobin 30.9 pg (25-34) Mean Corpuscular Hemoglobin Concent 34.7 g/dl (32-36) Platelet Count 140 K/uL (130-400) Mean Platelet Volume 9.2 fL (7.4-10.4) Neutrophils (%) (Auto) 89.4 % Lymphocytes (%) (Auto) 5.5 % Monocytes (%) (Auto) 4.4 % Eosinophils (%) (Auto) 0.0 % Basophils (%) (Auto) 0.1 % Neutrophils # (Auto) 7.85 K/uL (1.4-6.5) Lymphocytes # (Auto) 0.48 K/uL (1.2-3.4) Monocytes # (Auto) 0.39 K/uL (0.11-0.59) Eosinophils # (Auto) 0.00 K/uL (0-0.5) Basophils # (Auto) 0.01 K/uL (0-0.2) RDW Standard Deviation 45.8 fL (36.4-46.3) RDW Coefficient of Variation 13.9 % (11.5-14.5) Immature Granulocyte % (Auto) 0.6 % Immature Granulocyte # (Auto) 0.05 K/uL (0.00-0.02) Anion Gap 9.0 mmol/L (3-11) Est Creatinine Clear Calc Drug Dose 67.6 ml/min Estimated GFR () 69.1 Estimated GFR (Non- 59.6 BUN/Creatinine Ratio 29.3 (10-20) Calcium Level 8.7 mg/dl (8.5-10.1) Magnesium Level 2.3 mg/dl (1.8-2.4) Total Bilirubin 0.7 mg/dl (0.2-1) Aspartate Amino Transf (AST/SGOT) 35 U/L (15-37) Alanine Aminotransferase (ALT/SGPT) 27 U/L (12-78) Alkaline Phosphatase 88 U/L (45-117) Total Protein 7.3 gm/dl (6.4-8.2) Albumin 3.7 gm/dl (3.4-5.0) Globulin 3.6 gm/dl (2.5-4.0) Albumin/Globulin Ratio 1.0 (0.9-2) Chemistry Specimen Hemolysis Bedside Lactic Acid Venous 1.83 mmol/L (0.90-1.70) Prothrombin Time 11.5 SECONDS (9.0-12.0) Prothromb Time International Ratio 1.1 (0.9-1.1) Activated Partial Thromboplast Time 29.4 SECONDS (21.0-31.0) Partial Thromboplastin Ratio 1.1 Total Creatine Kinase 1620 U/L (39-308) Lyme Disease IgG Antibody NEG (NEG) Urine Color DK YELLOW Urine Appearance CLEAR (CLEAR) Urine pH 5.5 (4.5-7.5) Urine Specific [place] 1.034 (1.000-1.030) Urine Protein NEG (NEG) Urine Glucose (UA) NEG (NEG) Urine Ketones TRACE (NEG) Urine Occult Blood NEG (NEG) Urine Nitrite NEG (NEG) Urine Bilirubin NEG (NEG) Urine Urobilinogen NEG (NEG) Urine Leukocyte Esterase NEG (NEG) Urine WBC (Auto) 1-5 /hpf (0-5) Urine RBC (Auto) 5-10 /hpf (0-4) Urine Hyaline Casts (Auto) 1-5 /lpf (0-5) Urine Epithelial Cells (Auto) 10-20 /lpf (0-5) Urine Bacteria (Auto) NEG (NEG) Laboratory results reviewed by me. Medications Administered Medications (Trade) Dose Ordered Sig/Priscilla Route Start Time Stop Time Status Last Admin Dose Admin Sodium Chloride 1,000 ml @ 999 mls/hr Q1H1M ONCE IV 01/11/17 13:34 01/11/17 14:34 DC 01/11/17 13:59 999 MLS/HR Piperacillin Sod/ Tazobactam Sod (Zosyn Iv) 4.5 gm ONE STAT IV 01/11/17 13:34 01/11/17 13:36 DC 01/11/17 14:00 4.5 GM Acetaminophen (Tylenol Tab) 1,000 mg NOW STAT PO 01/11/17 13:34 01/11/17 13:36 DC 01/11/17 13:51 1,000 MG ECG Indication: weakness Rate (beats per minute): 100 Rhythm: normal sinus Findings: no acute ischemic change, no ectopy ED Course 1325: The patient was evaluated in room A11A. A complete history and physical exam was performed. 1334: Ordered Tylenol Tab 1000 mg PO, Zosyn Iv 4.5 gm IV, Sodium Chloride 1000 ml @ 999 mls/hr IV 1608: Upon reexamination the patient is resting. I discussed results and treatment plan with the patient. He and his family verbalize agreement and understanding. The patient will be evaluated by Dr. Ortega of [facility], for further management. Medical Decision Differential diagnosis includes but is not limited to sepsis, bacteremia, cellulitis, pneumonia, electrolyte imbalance, UTI, dehydration, lyme disease, and viral illness. There is no leukocytosis or concerning anemia. No significant electrolyte abnormality, kidney failure or hepatitis. Lactic acid level is not significantly elevated making severe sepsis less likely. Chest film does not show pneumonia or CHF. There was no cellulitis on exam. Urinalysis does not show infection. Blood cultures are pending. Lyme disease testing was equivocal. IgM was positive, IgG was negative. The patient received IV saline, IV Zosyn and oral Tylenol. The patient presents with weakness and a fall. He is quite tired but wakes up easily with just verbal stimulation. I am concerned about the fever and his weakness and falling. I do not think he is able to be discharged home. He may have bacteremia, this all could be from Lyme disease. A hospital stay and further testing is required. I spoke to the patient and the case consultant. The on-call hospitalist was consulted. Medication Reconcilliation Current Medication List: was personally reviewed by me Blood Pressure Screening Patient's blood pressure: Elevated blood pressure Blood pressure disposition: Elevated BP felt to be situational Consults Time Called: 1604 Consulting Physician: Dr. Jordan Ortiz Hospitalist Returned Call: [phone] Discussed the patient's case. The patient will be evaluated for further management. Impression Primary Impression: Weakness Additional Impressions: Fever Confusion Scribe Attestation The scribe's documentation has been prepared under my direction and personally reviewed by me in its entirety. I confirm that the note above accurately reflects all work, treatment, procedures, and medical decision making performed by me. Departure Information Dispostion Being Evaluated By Hospitalist Referrals Binu Sigala D.O. (PCP) Patient Instructions My [facility] Problem Qualifiers Additional Impressions: Fever Fever type: unspecified Qualified Codes: R50.9 - Fever, unspecified
[2017-01-11 14:15] LABS: BASO % 0.1 %; BASO ABS # 0.01 K/uL (0-0.2); COMPLETE YES; HEMATOCRIT 42.7 % (42-52); IG% 0.6 %; LYMPH % 5.5 %; LYMPH ABS # 0.48 K/uL (1.2-3.4); MEAN CELL VOLUME 89.1 fL (80-100); MEAN CORPUSCULAR HEMOGLOBIN 30.9 pg (25-34); MEAN CORPUSCULAR HGB CONC 34.7 g/dl (32-36); MEAN PLATELET VOLUME 9.2 fL (7.4-10.4); MONO % 4.4 %; NEUT % 89.4 %; PLATELET COUNT 140 K/uL (130-400); RED BLOOD COUNT 4.79 M/uL (4.7-6.1); WHITE BLOOD COUNT 8.78 K/uL (4.8-10.8)
[2017-01-11] MEDS ORDERED: ARIP2TAB3 PO (14:27)
[2017-01-11] MEDS ORDERED: WLLSR150 PO (14:27)
[2017-01-11] MEDS ORDERED: MELO7.5T5 PO (14:33)
--- NOTE | 2017-01-11 14:33 | DIAGNOSTIC IMAGING REPORT ---
CHEST ONE VIEW PORTABLE CLINICAL HISTORY: Sepsis TRAUMA COMPARISON STUDY: 05/10/2015 FINDINGS: The cardiac and mediastinal contours remain stable. There is no failure. There is no focal pulmonary consolidation. There are no pleural effusions. No pneumothorax is evident.[ IMPRESSION: No active disease in the chest. Electronically signed by: Luis Gomez M.D. 01/11/2017 2:32 PM Dictated Date/Time: 01/11/2017 2:31 PM
[2017-01-11 14:39] LABS: BUN/CREATININE RATIO 29.3 (10-20); CALCIUM 8.7 mg/dl (8.5-10.1); CREATININE 1.2 mg/dl (0.60-1.40)
[2017-01-11 14:50] LABS: MAGNESIUM 2.3 mg/dl (1.8-2.4); POTASSIUM 4.2 mmol/L (3.5-5.1)
[2017-01-11 15:02] LABS: INR 1.1 (0.9-1.1); PARTIAL THROMBOPLASTIN RATIO 1.1; PROTHROMBIN TIME (PATIENT) 11.5 SECONDS (9.0-12.0)
[2017-01-11 15:48] LABS: LYME DISEASE AB IGG NEG (NEG)
[2017-01-11 15:50] LABS: LYME DISEASE AB IGM POS (NEG)
[2017-01-11] MEDS ORDERED: SODIUM CHLORIDE 0.9% 1000ML 1,000 ML IV STA (16:55)
[2017-01-11 17:13] VITALS: Ht 175.3 cm; Wt 105.6 kg
[2017-01-11 17:15] LABS: URINE APPEARANCE CLEAR (CLEAR); URINE BILIRUBIN NEG (NEG); URINE COLOR DK YELLOW; URINE NITRITE NEG (NEG); URINE PH 5.5 (4.5-7.5); URINE SPECIFIC GRAVITY 1.034 (1.000-1.030); UROBILINOGEN NEG (NEG); ZZUR CULT IF INDIC CLEAN CATCH NO
--- NOTE | 2017-01-11 17:20 | History and Physical ---
History & Physical Date & Time of Service: Jan 11, 2017 at 17:11 Chief Complaint: FALL Primary Care Physician: Binu Sigala D.O. History of Present Illness Source: patient, family This is a 71 year old M who fell from a chair after feeling disoriented while bending down to poultry picker a piece of paper. Patient denies chest pain of shortness of breath or headache preceding the disorientation. Patient denies striking his head on the floor. As per patient and his , his had difficulty picking him up from the ground. Denies loss of consciousness. Patient was able to roll over but unable to immediately get up off of the floor because he did not feel his arms were strong enough to push up off of the floor. This situation lasted fro around one hour before patient was able to get up somehow. Patient appears to be often referring to his about his recent activities. His collaborates that patient appeared to be having more shuffling gait this morning before the incident took place however this shuffling is chronic. Patient denies personal of family history of Parkinson's Disease. Patient has history of prostate removed due to prostate cancer and has history of urinary incontinence however denies abdominal pain or pain with urinating. Patient reports that the day before he might have over exerted himself while cutting bushes. He also reported that 4 days ago he was outdoors and had a tick bite of left shoulder and that he removed the tick. In the ED he was found to have an elevated temperature of 38.5 F and was given Zosyn 4.5 grams. As per ED physician, patient's source of fever is unclear and that Zosyn was started for broad coverage. Emergency room physician sent Lyme disease antibodies. Patient also received IV fluids in the ED. Orthostatics checked in the ED did not show orthostatic hypotension but this may have been a non- informative test due to already being given IV fluids. Past Medical/Surgical History Medical Problems: (1) Prostate ca Status: Chronic Surgical Problems: (1) History of prostatectomy Status: Resolved Family History FH: heart disease No pertinent family history BROTHER Social History Smoking Status: Never Smoker Drug Use: none Marital Status: Multi-Drug Resistant Organisms History of MDRO: No Allergies Coded Allergies: Animal Dander (Verified Allergy, Unknown, per allergy testing, 01/11/17) NO KNOWN DRUG ALLERGIES (Verified Allergy, Unknown, NKDA, 01/11/17) Home Medications Scheduled Aripiprazole (Abilify), 2 MG PO HS Bupropion HCl (Bupropion HCl Sr), 150 MG PO BID Cholecalciferol (Vitamin D), 1 TAB PO QAM Docusate Sodium (Docusate Sodium), 1 TAB PO BID Meloxicam (Mobic), 7.5 MG PO DAILY Omeprazole (Prilosec), 20 MG PO BID Polyethylene Glycol 3350 (Miralax), 2 DOSE PO BID Pravastatin Sodium (Pravastatin Sodium), 40 MG PO QAM Ropinirole (Requip), 2 MG PO TID Sertraline (Zoloft), 100 MG PO HS Review of Systems Constitutional: + fever (fever recorded in the Emergency room of 38.5F), + weakness, No chills Eyes: No eye pain ENT: No sore throat, No trouble swallowing Respiratory: No cough, No sputum Cardiovascular: No chest pain, No palpitations Abdomen: No pain, No nausea, No vomiting, No diarrhea Musculoskeletal: + problem reported (could not lift himself up off the floor for 1 hour at home) Genitourinary - Male: + urinary incontinence Neurologic: + problem reported (disorientation), No paralysis, No numbness/ tingling Psychiatric: No substance abuse Hematologic / Lymphatic: No night sweats Integumentary: + new/changing skin lesions (red circular adam near right shoulder, no ring lesion), No rash, No itch Physical Exam Vital Signs Date Time Temp Pulse Resp B/P (MAP) Pulse Ox O2 Delivery O2 Flow Rate FiO2 01/11/17 16:34 86 112/58 89 107/62 01/11/17 16:09 85 18 124/73 94 Room Air 01/11/17 14:27 94 20 130/74 92 Room Air 01/11/17 13:41 93 Room Air 01/11/17 13:25 95 01/11/17 13:18 38.5 102 18 139/71 96 Room Air General Appearance: no apparent distress Head: normocephalic, atraumatic Eyes: normal inspection, EOMI, sclerae normal ENT: hearing grossly normal, pharynx normal Neck: supple, no JVD, no carotid bruits, trachea midline Respiratory/Chest: chest non-tender, lungs clear, normal breath sounds, no respiratory distress, no accessory muscle use Cardiovascular: regular rate, rhythm, no edema, no JVD, no murmur, normal peripheral pulses Abdomen/GI: normal bowel sounds, soft, no organomegaly Back: no muscle spasm Extremities/Musculoskelatal: normal inspection, no calf tenderness, no pedal edema, normal range of motion Neurologic/Psych: no motor/sensory deficits, alert, oriented x 3 Skin: + pertinent finding (red circular adam near right shoulder, no ring lesion) Diagnostics Laboratory Results Results Past 24 Hours Test 01/11/17 13:55 01/11/17 14:02 01/11/17 14:37 01/11/17 15:54 Range/Units White Blood Count 8.78 4.8-10.8 K/uL Red Blood Count 4.79 4.7-6.1 M/uL Hemoglobin 14.8 14.0-18.0 g/dL Hematocrit 42.7 42-52 % Mean Corpuscular Volume 89.1 80-100 fL Mean Corpuscular Hemoglobin 30.9 25-34 pg Mean Corpuscular Hemoglobin Concent 34.7 32-36 g/dl Platelet Count 140 130-400 K/uL Mean Platelet Volume 9.2 7.4-10.4 fL Neutrophils (%) (Auto) 89.4 % Lymphocytes (%) (Auto) 5.5 % Monocytes (%) (Auto) 4.4 % Eosinophils (%) (Auto) 0.0 % Basophils (%) (Auto) 0.1 % Neutrophils # (Auto) 7.85 1.4-6.5 K/uL Lymphocytes # (Auto) 0.48 1.2-3.4 K/uL Monocytes # (Auto) 0.39 0.11-0.59 K/uL Eosinophils # (Auto) 0.00 0-0.5 K/uL Basophils # (Auto) 0.01 0-0.2 K/uL RDW Standard Deviation 45.8 36.4-46.3 fL RDW Coefficient of Variation 13.9 11.5-14.5 % Immature Granulocyte % (Auto) 0.6 % Immature Granulocyte # (Auto) 0.05 0.00-0.02 K/uL Sodium Level 136 136-145 mmol/L Potassium Level 4.2 3.5-5.1 mmol/L Chloride Level 101 98-107 mmol/L Carbon Dioxide Level 27 21-32 mmol/L Anion Gap 9.0 3-11 mmol/L Blood Urea Nitrogen 35 7-18 mg/dl Creatinine 1.20 0.60-1.40 mg/dl Est Creatinine Clear Calc Drug Dose 67.6 ml/min Estimated GFR () 69.1 Estimated GFR (Non- 59.6 BUN/Creatinine Ratio 29.3 10-20 Random Glucose 114 70-99 mg/dl Calcium Level 8.7 8.5-10.1 mg/dl Magnesium Level 2.3 1.8-2.4 mg/dl Total Bilirubin 0.7 0.2-1 mg/dl Aspartate Amino Transf (AST/SGOT) 35 15-37 U/L Alanine Aminotransferase (ALT/SGPT) 27 12-78 U/L Alkaline Phosphatase 88 45-117 U/L Total Protein 7.3 6.4-8.2 gm/dl Albumin 3.7 3.4-5.0 gm/dl Globulin 3.6 2.5-4.0 gm/dl Albumin/Globulin Ratio 1.0 0.9-2 Chemistry Specimen Hemolysis Bedside Lactic Acid Venous 1.83 0.90-1.70 mmol/L Prothrombin Time 11.5 9.0-12.0 SECONDS Prothromb Time International Ratio 1.1 0.9-1.1 Activated Partial Thromboplast Time 29.4 21.0-31.0 SECONDS Partial Thromboplastin Ratio 1.1 Lyme Disease IgG Antibody NEG NEG Lyme Disease IgM Antibody POS NEG Test 01/11/17 17:04 Range/Units Microbiology Results 01/11/17 Blood Culture, Received Pending 01/11/17 Blood Culture, Received Pending EKG sinus rhythm 100 beats per minute. no evidence of heart block Impression Assessment and Plan history of disorientation no reported loss of consciousness, no gross neurological deficits, unlikely to have stroke or seizure no preceding symptoms of chest pain or shortness of breath or palpitations EKG sinus at 100 bpm without evidence of heart block, telemetry monitoring as patient may have arrhythmia, history of rheumatic fever in the past - obtain 2D TTE of the heart patient is on multiple medications for mood including Abilify, sertraline, bupropion; patient denies alcohol use with medications, disorientation prior to falling on the ground may be due to medication side effects however will continue for now and monitor in hospital setting to observe if these medication use may be the culprit for disorientation history of exertion outdoors the day before patient's ED presentation: no gross electrolytes deficiencies, check creatinine kinase, no hypoglycemia reported, check glucose fever with reported history of tick bite with red pimple size flat adam without target lesion patient given 4.5 mg Zosyn in the ED, follow up blood cultures LYME DISEASE ANTIBODY POSITIVE FOR IGM BUT NEGATIVE FOR IGG no apparent erythema migrans, but treatment for early tick bite is doxycycline 100 mg PO BID, will empirically treat with doxycycline for now unlikely to be having neurological or cardiac involvement based on recent tick bit and removal x 4 days ago but treatment for systemic involvement of tick bite is ceftriaxone 2 mg IV, will empirically treat with this antibiotic for now will consult ID for lyme disease management history of restless leg syndrom vs "shuffling gait" will continue ropinirole, no Parkinsonian disease in history, monitor ambulation , CT head to rule out dilated ventricles obtain chest X ray DVT prophylaxis: heparin subcut Code Status: Full Code Level of Care Telemetry Resuscitation Status FULL RESUSCITATION VTE Prophylaxis VTE Risk Assessment Done? Y/N: Yes Risk Level: Moderate Given or contraindicated: Unfractionated heparin SQ
[2017-01-11 17:33] LABS: MANUAL MICROSCOPIC REQUIRED? NO; REVIEW REQ? NO
[2017-01-11] MEDS ORDERED: IV FLUIDS COMPLETED PRN (18:00)
[2017-01-11 18:29] VITALS: BP 136/71; PULSE 89; TEMP 36.7; O2SAT 98
[2017-01-11 20:00] VITALS: TEMP 39.1
[2017-01-11] MEDS ORDERED: ACETAMINOPHEN 325 MG TAB PO PRN (20:00)
[2017-01-11] MEDS ORDERED: ACETAMINOPHEN 325 MG TAB ONE (20:19)
--- NOTE | 2017-01-11 20:56 | DIAGNOSTIC IMAGING REPORT ---
CT HEAD WITHOUT CONTRAST (CT) CLINICAL HISTORY: Change in mental status. COMPARISON STUDY: MRI the brain performed February 2006 TECHNIQUE: Axial CT of the brain is performed from the vertex to the skull base. IV contrast was not administered for this examination. A dose lowering technique was utilized adhering to the principles of ALARA. CT DOSE: 537.48 mGy.cm FINDINGS: No intra or extra-axial mass lesions are visualized. There is no CT evidence of acute cortical infarction. There is no evidence of midline shift. There is no acute hemorrhage. No calvarial fractures are visualized. There are minimal white matter hypodensities likely on a small vessel basis. There is no evidence of pathologic ventricular dilatation. There is no evidence of acute sinusitis IMPRESSION: No acute intracranial findings Electronically signed by: Luis Gomez M.D. 01/11/2017 8:55 PM Dictated Date/Time: 01/11/2017 8:54 PM
[2017-01-11] MEDS ORDERED: CEFTRIAXONE SOD INJ 2,000 MG in DEXTROSE 5% 50ML 50 ML IV ONE (21:00)
[2017-01-11] MEDS ORDERED: SERTRALINE HCL 100 MG TAB PO SCH (21:00)
[2017-01-11] MEDS ORDERED: DOCUSATE SODIUM 100 MG CAP PO SCH (21:00)
[2017-01-11] MEDS: PANTOprazole SOD 40 MG TAB PO SCH (21:39)
[2017-01-11] MEDS: DOCUSATE SODIUM 100 MG CAP PO SCH (21:39)
[2017-01-11] MEDS: ROPINIROLE HCL 1 MG TAB PO SCH (21:40)
[2017-01-11] MEDS: DOXYCYCLINE HYCLATE 100 MG CAP PO SCH (21:40)
[2017-01-11] MEDS: BuPROPion SR 150 MG TABCR PO SCH (21:41)
[2017-01-11] MEDS: HEPARIN SOD 5000 UNIT/0.5 ML CARP SQ SCH (21:57)
[2017-01-11] MEDS: POLYETHYLENE (MIRALAX) 17 GM PACK PO SCH (22:05)
--- NOTE | 2017-01-11 22:31 | DIAGNOSTIC IMAGING REPORT ---
CHEST 2 VIEWS ROUTINE CLINICAL HISTORY: Trauma. Sepsis. Change in mental status. COMPARISON STUDY: 01/11/2017 FINDINGS: The cardiac and mediastinal contours are normal. There is no evidence of focal pulmonary consolidation. There is no evidence of failure. No pleural effusions are visualized.[ IMPRESSION: No active disease in the chest. Electronically signed by: Luis Gomez M.D. 01/11/2017 10:30 PM Dictated Date/Time: 01/11/2017 10:29 PM
[2017-01-11 23:05] VITALS: BP 118/69; PULSE 92; TEMP 36.8; O2SAT 92
[2017-01-12 04:00] VITALS: BP 135/73; PULSE 91; TEMP 37.7; O2SAT 91
[2017-01-12] MEDS: HEPARIN SOD 5000 UNIT/0.5 ML CARP SQ SCH ×2 (05:43→14:00)
[2017-01-12 05:46] LABS: BASO % 0.1 %; BASO ABS # 0.01 K/uL (0-0.2); COMPLETE YES; HEMATOCRIT 40.8 % (42-52); IG% 0.4 %; LYMPH % 10.3 %; LYMPH ABS # 0.71 K/uL (1.2-3.4); MEAN CELL VOLUME 88.9 fL (80-100); MEAN CORPUSCULAR HEMOGLOBIN 29.8 pg (25-34); MEAN CORPUSCULAR HGB CONC 33.6 g/dl (32-36); MEAN PLATELET VOLUME 9.5 fL (7.4-10.4); MONO % 5.6 %; NEUT % 83.6 %; PLATELET COUNT 118 K/uL (130-400); RED BLOOD COUNT 4.59 M/uL (4.7-6.1); WHITE BLOOD COUNT 6.91 K/uL (4.8-10.8)
[2017-01-12 06:13] LABS: BUN/CREATININE RATIO 27.8 (10-20); CALCIUM 7.8 mg/dl (8.5-10.1); CREATININE 0.97 mg/dl (0.60-1.40); POTASSIUM 3.4 mmol/L (3.5-5.1)
[2017-01-12 07:34] VITALS: BP 119/69; PULSE 86; TEMP 37; O2SAT 93
[2017-01-12 08:00] VITALS: O2SAT 93
[2017-01-12] MEDS ORDERED: POTASSIUM CHLORIDE 20 MEQ TABCR PO ONE (08:00)
[2017-01-12] MEDS ORDERED: PERFLUTREN LIPID MICROSPHERE (DEFINITY) IV ONE (08:03)
[2017-01-12] MEDS: POLYETHYLENE (MIRALAX) 17 GM PACK PO SCH (08:15)
[2017-01-12] MEDS: DOXYCYCLINE HYCLATE 100 MG CAP PO SCH (08:16)
[2017-01-12] MEDS: ROPINIROLE HCL 1 MG TAB PO SCH ×2 (08:16→14:22)
[2017-01-12] MEDS: PANTOprazole SOD 40 MG TAB PO SCH (08:16)
[2017-01-12] MEDS: BuPROPion SR 150 MG TABCR PO SCH (08:16)
[2017-01-12] MEDS: DOCUSATE SODIUM 100 MG CAP PO SCH (08:16)
[2017-01-12] MEDS ORDERED: PRAVASTATIN SOD 40 MG TAB PO SCH (09:00)
--- NOTE | 2017-01-12 09:41 | ECHOCARDIOGRAM REPORT ---
*NOTICE TO RECEIVING CONSTITUTION PARTY AGENCY This information is strictly Confidential and protected under [place] law. [place] law prohibits you from making any further disclosure of this information unless further disclosure is expressly permitted by the written consent of the person to whom it pertains or is authorized by law. A general authorization for the release of medical or other information is not sufficient for this purpose. Hospital accepts no responsibility if the information is made available to any other person, INCLUDING THE PATIENT. Interpretation Summary * Name: MIMI ROWAN Study Date: 01/12/2017 06:45 AM BP: 135/73 mmHg * Patient Location: [facility]\S\N280\S\2 HR: 91 * : 1945 (M/d/yyy) Gender: Male Height: 69 in * Age: 71 yrs Ethnicity: [place] Weight: 246 lb * Ordering Physician: Andrew Ortega * Referring Physician: Self, Referred * Performed By: Lore Kapoor RDCS * * Reason For Study: History of Rheumatic Heart Disease * BSA: 2.3 m2 * -- Conclusions -- * The left ventricular wall motion is normal. * Ejection Fraction = 55-60%. * There is mild aortic valve sclerosis , with mild focal calcification of the left coronary cusp of the aortic valve. * There is no significant aortic regurgitation. * Aortic stenosis is absent. * There is a nonmobile echodensity of the atrial aspect of the mitral valve leaflet. * There is mild mitral regurgitation. * There is no prior recent echocardiogram study performed at [facility] or [facility] for direct comparison. * Echocardiographic findings on the mitral valve and aortic valve could be due to age related calcification. * If clinical suspicion for endocarditis remains high consider AYAKA. Procedure Details * A complete two-dimensional transthoracic echocardiogram was performed (2D, M-mode, Doppler and color flow Doppler). * The study was technically difficult. * The study was technically difficult, but visualization was adequate with the administration of Definity ultrasound contrast. * There were technical limitations due to patient'sbody habitus * A contrast injection of Definity was performed to improve assessment of LV function. * Contrast was injected into an intravenous site in the right arm. * One vial of Definity ultrasound contrast was diluted in normal saline to a total volume of 10 ml. A total of '3' ml of solution was administered during imaging. * Lot # [id number] of Definity utilized for procedure. * Expiration date . * The attending nurse who injected the contrast agent was Nicole Trivedi RN. Left Ventricle * The left ventricle is normal in size. * There is normal left ventricular wall thickness. * Left ventricular systolic function is normal. * Ejection Fraction = 55-60%. * The left ventricular wall motion is normal. Right Ventricle * The right ventricle is normal size. * The right ventricular systolic function is normal as assessed by tricuspid annular plane systolic excursion (TAPSE) (normal >1.5 cm). Atria * The left atrial size is normal. * Right atrial size is normal. * There is no evidence of atrial septal defect, but resolution does not allow assessment for a patent foramen ovale. Mitral Valve * There is an echodensity of the atrial aspect of the mitral valve leaflet. * There is no mitral valve stenosis. * There is mild mitral regurgitation. Tricuspid Valve * The tricuspid valve is normal. * There is no tricuspid stenosis. * Significant tricuspid regurgitation is absent. Aortic Valve * The aortic valve is trileaflet. * There is mild aortic valve sclerosis , with mild focal calcifiction of the left coronary cusp of the aortic valve. * Aortic stenosis is absent. * There is no significant aortic regurgitation. Pulmonic Valve * The pulmonary valve is not well seen, but the Doppler examination is normal without significant regurgitation or stenosis. Great Vessels * The aortic root and proximal ascending aorta are normal sized. Pericardium/Pleural * There is no pericardial effusion. Great Vessels * Normal inferior vena cava diameter and respiratory variation suggests normal central venous pressure. Left Ventricular Diastolic Function * Diastolic dysfunction, Grade II (pseudonormalization pattern). MMode 2D Measurements and Calculations IVSd 0.97 cm IVSs 1.5 cm LVIDd 4.4 cm LVIDs 2.6 cm LVPWd 0.96 cm LVPWs 1.1 cm IVS/LVPW 1.0 FS 39.9 % EDV(Teich) 86.1 ml ESV(Teich) 25.2 ml EF(Teich) 70.8 % EDV(cubed) 83.3 ml ESV(cubed) 18.1 ml EF(cubed) 78.3 % % IVS thick 53.3 % % LVPW thick 15.9 % LV mass(C)d 139.6 grams LV mass(C)dI 61.9 grams/m\S\2 LV mass(C)s 104.6 grams LV mass(C)sI 46.4 grams/m\S\2 SV(Teich) 61.0 ml SI(Teich) 27.0 ml/m\S\2 SV(cubed) 65.2 ml SI(cubed) 28.9 ml/m\S\2 Ao root diam 3.0 cm Ao root area 7.3 cm\S\2 ACS 1.7 cm asc Aorta Diam 3.5 cm LVAd ap4 28.8 cm\S\2 LVLd ap4 8.5 cm EDV(MOD-sp4) 81.7 ml EDV(sp4-el) 83.2 ml LVAs ap4 14.8 cm\S\2 LVLs ap4 6.8 cm ESV(MOD-sp4) 27.7 ml ESV(sp4-el) 27.1 ml EF(MOD-sp4) 66.1 % EF(sp4-el) 67.4 % LVAd ap2 28.3 cm\S\2 LVLd ap2 8.1 cm EDV(MOD-sp2) 86.3 ml EDV(sp2-el) 83.6 ml LVAs ap2 16.0 cm\S\2 LVLs ap2 7.4 cm ESV(MOD-sp2) 33.2 ml ESV(sp2-el) 29.4 ml EF(MOD-sp2) 61.5 % EF(sp2-el) 64.8 % LVLd %diff -3.98 % EDV(MOD-bp) 86.1 ml LVLs %diff 7.7 % ESV(MOD-bp) 30.0 ml EF(MOD-bp) 65.2 % SV(MOD-sp4) 54.0 ml SI(MOD-sp4) 23.9 ml/m\S\2 SV(MOD-sp2) 53.1 ml SI(MOD-sp2) 23.6 ml/m\S\2 SV(MOD-bp) 56.2 ml SI(MOD-bp) 24.9 ml/m\S\2 SV(sp4-el) 56.1 ml SI(sp4-el) 24.9 ml/m\S\2 SV(sp2-el) 54.2 ml SI(sp2-el) 24.0 ml/m\S\2 Doppler Measurements and Calculations MV E max rhonda 109.1 cm/sec MV A max rhonad 82.9 cm/sec MV E/A 1.3 MV dec time 0.19 sec Ao V2 max 197.9 cm/sec Ao max PG 15.7 mmHg Ao max PG (full) 8.7 mmHg LV V1 max PG 7.0 mmHg LV V1 max 131.8 cm/sec PA V2 max 104.4 cm/sec PA max PG 4.4 mmHg PI max rhonda 131.2 cm/sec PI max PG 6.9 mmHg PI dec slope 206.1 cm/sec\S\2 PI P1/2t 186.5 msec TR max rhonda 261.4 cm/sec
--- NOTE | 2017-01-12 10:02 | Progress Note ---
Progress Note Date of Service Jan 12, 2017. Progress Note ID Consult Dictated #[id number] A/P: 1. Lyme disease -Continue doxy, stop rocephin, will need 28 days -With low platelets, mild transaminitis this am and fever, will check anaplasma serology as well but doxy would be padilla -No contraindication to d/c when otherwise stable -Thank you
--- NOTE | 2017-01-12 10:16 | INFECT. DISEASE CONSULTATION ---
DATE OF CONSULTATION: 01/12/2017 REQUESTING PHYSICIAN: Dr. Ortega. HISTORY OF PRESENT ILLNESS: This is a 71-year-old gentleman who was admitted from home after he had a fall yesterday. He denies any loss of consciousness. His is present with him. He was disoriented on admission, but is currently feeling much better. He is asking to be discharged home. As part of his workup as he did have a fever and reported tick bite 4 days ago on the left upper extremity, a Lyme screen was obtained and his IgM is positive. Western blot is pending. He was placed on Rocephin and doxycycline. He did have a fever of 39.2 on admission and his T-max overnight was 37.7. He is currently afebrile. He denies any fevers or chills prior to admission. He denies any arthralgias or myalgias. His is present and states that he does have chronic joint pain, but this is unchanged. He denies any rash. He denies any nausea, vomiting, or diarrhea. He has no headache, visual changes or nuchal rigidity. All remaining review of systems reviewed and are unremarkable. PAST MEDICAL HISTORY: Significant for prostate cancer. PAST SURGICAL HISTORY: Significant for prostatectomy. FAMILY HISTORY: Noncontributory. SOCIAL HISTORY: Negative for tobacco use, alcohol use or drug use. He is and lives with his . ALLERGIES: He has no known drug allergies. MEDICATIONS: Include ceftriaxone, Pravachol, heparin, Wellbutrin, Requip, Zoloft, Protonix, MiraLax, doxycycline, Colace, and Tylenol. PHYSICAL EXAMINATION: VITAL SIGNS: He is currently afebrile. His T-max overnight was 37.7, pulse 86, respiratory rate 20, blood pressure 119/69, and oxygen saturation is 93%-98% on room air. GENERAL: He is awake, alert and oriented x3. He is in no acute distress. HEENT: Mucous membranes are moist. Extraocular muscles are intact. There is no nuchal rigidity. HEART: Regular. LUNGS: Clear bilaterally. ABDOMEN: Soft, nontender, and nondistended. EXTREMITIES: There is no lower extremity edema. There is no joint tenderness. SKIN: Without rash. LABORATORY STUDIES: CBC today reveals a white count of 6.9, hemoglobin 13.7, and platelets are 118. Chemistry panel reveals a sodium of 135, potassium 3.4, chloride 104, bicarbonate 23, BUN 27, creatinine 0.7, and glucose is 117. Lactic acid was 1.8 overnight. Total bilirubin is normal. AST is elevated today at 81. ALT is normal at 35. Urinalysis is unremarkable with 1-5 WBCs and no bacteria. Again, acute Lyme panel has positive IgM. IgG is negative. Western blot is pending. Blood cultures are pending. Chest x-ray was unremarkable. Echocardiogram was done this morning and does not show any vegetation. ASSESSMENT AND PLAN: Likely early Lyme disease. He will continue on doxycycline. With his high fevers, thrombocytopenia and mild transaminitis, will also be checked. He will likely need a 28-day course of doxycycline. I cannot see any indication for Rocephin and so, this will be discontinued at this time. I do not see any contraindication to discharge from an infectious diseases standpoint. Thank you for this consultation. MIKA
[2017-01-12 11:26] VITALS: BP 107/61; PULSE 81; TEMP 37; O2SAT 97
[2017-01-12 14:56] VITALS: BP 111/69; PULSE 78; TEMP 36.9; O2SAT 96
[2017-01-12] MEDS ORDERED: DXY100 PO (14:59)
--- NOTE | 2017-01-12 15:31 | Progress Note ---
Internal Med Progress Note Date of Service: Jan 12, 2017. Provider Documentation: SUBJECTIVE: patient denies chest pain or shortness of breath. has been ambulating but slowly OBJECTIVE: General-no acute distress, ambulatory but slow gait Eyes- EOMI ENT- no oral or nasal exudates Neck- no Lungs- clear to auscultation bilaterally Heart- regular rate Abdomen- soft, nontender, + bowel sounds Extremities- no edema Neuro- awake and alert, no cogwheel rigidity of left hand, some small resistance when shaking right hand, ambulatory, slow gait ASSESSMENT & PLAN: This is a 71 year old M diagnosed with early exposure to Lyme Disease as serum IgM is positive but serum IgG negative. Patient initially given systemic IV antibiotics Zosyn in the ED on 01/12/17, and then doxycycline 100 mg BID for early lyme disease with IV Ceftriaxone 2000 mg doses in case patient may be at risk for cardiovascular of neurological involvement lyme disease. As per assessment by infectious disease physician, the IV ceftriaxone can be discontinued and patient continue on doxycycline 100 mg BID for 28 days. Infectious disease physician also sent serologies to rule out anaplasmosis but notes that even if this test was positive, patient would still be treated with doxycycline and that patient can be discharged home with doxycycline Conclusions on the Echo report "The left ventricular wall motion is normal. Ejection Fraction = 55-60%. There is mild aortic valve sclerosis , with mild focal calcification of the left coronary cusp of the aortic valve. There is no significant aortic regurgitation. Aortic stenosis is absent. There is a nonmobile echodensity of the atrial aspect of the mitral valve leaflet. There is mild mitral regurgitation. There is no prior recent echocardiogram study performed at [facility] or [facility] for direct comparison. Echocardiographic findings on the mitral valve and aortic valve could be due to age related calcification. If clinical suspicion for endocarditis remains high consider AYAKA" Internal medicine hospitalist have discussed with cardiology Dr. Parikh who had written the above echo report and have concluded that endocarditis is not likely source of fever given positive Lyme disease test to account for fever. Patient also has no heart blocks on EKG which may occur if Lyme disease has cardiovascular involvement Patient also noted to have slow gait and reportedly "shuffling gait" at home. CT head imaging normal: There is no CT evidence of acute cortical infarction. There is no evidence of midline shift. There is no acute hemorrhage. No calvarial fractures are visualized. There are minimal white matter hypodensities likely on a small vessel basis. There is no evidence of pathologic ventricular dilatation. There is no evidence of acute sinusitis Creatine kinase 1640 noted to be elevated. IV hydration given. Encourage oral intake. Stop Pravastatin for now. Patient is not in rhabdomyolysis as creatinine normal and has no abnormal urine Serum potassium 3.4. Oral potassium given Disposition: discharge home with diagnosis of early stage Lyme disease and prescription of 100 mg BID of doxycycline for 28 days. Patient to follow up with primary care Dr. Cruz on Thu01/14/17 at 1:05 PM Vital Signs: Date Time Temp Pulse Resp B/P (MAP) Pulse Ox O2 Delivery O2 Flow Rate FiO2 01/12/17 14:56 36.9 78 18 111/69 (83) 96 Room Air 01/12/17 11:26 37.0 81 20 107/61 (76) 97 Room Air 01/12/17 08:00 93 Room Air 01/12/17 07:34 37.0 86 20 119/69 (86) 93 Room Air 01/12/17 04:00 37.7 91 20 135/73 (93) 91 Room Air 01/12/17 00:00 Room Air 01/11/17 23:05 36.8 92 20 118/69 (85) 92 Room Air 01/11/17 20:00 Room Air 01/11/17 20:00 39.1 01/11/17 18:29 36.7 89 18 136/71 (92) 98 Room Air 01/11/17 17:46 80 18 131/69 01/11/17 17:13 Room Air 01/11/17 16:34 86 112/58 89 107/62 01/11/17 16:09 85 18 124/73 94 Room Air Lab Results: Results Past 24 Hours Test 01/11/17 15:54 01/12/17 05:19 01/12/17 08:08 01/12/17 11:36 Range/Units Urine Color DK YELLOW Urine Appearance CLEAR CLEAR Urine pH 5.5 4.5-7.5 Urine Specific [place] 1.034 1.000-1.030 Urine Protein NEG NEG Urine Glucose (UA) NEG NEG Urine Ketones TRACE NEG Urine Occult Blood NEG NEG Urine Nitrite NEG NEG Urine Bilirubin NEG NEG Urine Urobilinogen NEG NEG Urine Leukocyte Esterase NEG NEG Urine WBC (Auto) 1-5 0-5 /hpf Urine RBC (Auto) 5-10 0-4 /hpf Urine Hyaline Casts (Auto) 1-5 0-5 /lpf Urine Epithelial Cells (Auto) 10-20 0-5 /lpf Urine Bacteria (Auto) NEG NEG White Blood Count 6.91 4.8-10.8 K/uL Red Blood Count 4.59 4.7-6.1 M/uL Hemoglobin 13.7 14.0-18.0 g/dL Hematocrit 40.8 42-52 % Mean Corpuscular Volume 88.9 80-100 fL Mean Corpuscular Hemoglobin 29.8 25-34 pg Mean Corpuscular Hemoglobin Concent 33.6 32-36 g/dl Platelet Count 118 130-400 K/uL Mean Platelet Volume 9.5 7.4-10.4 fL Neutrophils (%) (Auto) 83.6 % Lymphocytes (%) (Auto) 10.3 % Monocytes (%) (Auto) 5.6 % Eosinophils (%) (Auto) 0.0 % Basophils (%) (Auto) 0.1 % Neutrophils # (Auto) 5.77 1.4-6.5 K/uL Lymphocytes # (Auto) 0.71 1.2-3.4 K/uL Monocytes # (Auto) 0.39 0.11-0.59 K/uL Eosinophils # (Auto) 0.00 0-0.5 K/uL Basophils # (Auto) 0.01 0-0.2 K/uL RDW Standard Deviation 46.0 36.4-46.3 fL RDW Coefficient of Variation 14.1 11.5-14.5 % Immature Granulocyte % (Auto) 0.4 % Immature Granulocyte # (Auto) 0.03 0.00-0.02 K/uL Sodium Level 135 136-145 mmol/L Potassium Level 3.4 3.5-5.1 mmol/L Chloride Level 104 98-107 mmol/L Carbon Dioxide Level 23 21-32 mmol/L Anion Gap 8.0 3-11 mmol/L Blood Urea Nitrogen 27 7-18 mg/dl Creatinine 0.97 0.60-1.40 mg/dl Est Creatinine Clear Calc Drug Dose 83.6 ml/min Estimated GFR () 89.4 Estimated GFR (Non- 77.1 BUN/Creatinine Ratio 27.8 10-20 Random Glucose 113 70-99 mg/dl Calcium Level 7.8 8.5-10.1 mg/dl Total Bilirubin 0.5 0.2-1 mg/dl Aspartate Amino Transf (AST/SGOT) 81 15-37 U/L Alanine Aminotransferase (ALT/SGPT) 35 12-78 U/L Alkaline Phosphatase 76 45-117 U/L Total Protein 6.5 6.4-8.2 gm/dl Albumin 3.2 3.4-5.0 gm/dl Globulin 3.3 2.5-4.0 gm/dl Albumin/Globulin Ratio 1.0 0.9-2 Bedside Glucose 117 126 70-99 mg/dl Test 01/12/17 11:42 Range/Units
--- NOTE | 2017-01-12 15:43 | Discharge Instructions ---
Discharge Instructions Date of Service Jan 12, 2017. Admission Reason for Admission: Fever, Weakness Discharge Discharge Diagnosis / Problem: lyme disease, weakness, hypokalemia Discharge Goals Goal(s): Improve function Activity Recommendations Activity Limitations: per Instructions/Follow-up section Lifting Limitations: gradually increase as tolerated Exercise/Sports Limitations: gradually increase as tolerated Shower/Bathe: no limitations . Instructions / Follow-Up Instructions / Follow-Up This is a 71 year old M diagnosed with early exposure to Lyme Disease as serum IgM is positive but serum IgG negative. Patient initially given systemic IV antibiotics Zosyn in the ED on 01/12/17, and then doxycycline 100 mg BID for early lyme disease with IV Ceftriaxone 2000 mg doses in case patient may be at risk for cardiovascular of neurological involvement lyme disease. As per assessment by infectious disease physician, the IV ceftriaxone can be discontinued and patient continue on doxycycline 100 mg BID for 28 days. Infectious disease physician also sent serologies to rule out anaplasmosis but notes that even if this test was positive, patient would still be treated with doxycycline and that patient can be discharged home with doxycycline Conclusions on the Echo report "The left ventricular wall motion is normal. Ejection Fraction = 55-60%. There is mild aortic valve sclerosis , with mild focal calcification of the left coronary cusp of the aortic valve. There is no significant aortic regurgitation. Aortic stenosis is absent. There is a nonmobile echodensity of the atrial aspect of the mitral valve leaflet. There is mild mitral regurgitation. There is no prior recent echocardiogram study performed at [facility] or [facility] for direct comparison. Echocardiographic findings on the mitral valve and aortic valve could be due to age related calcification. If clinical suspicion for endocarditis remains high consider AYAKA" Internal medicine hospitalist have discussed with cardiology Dr. Parikh who had written the above echo report and have concluded that endocarditis is not likely source of fever given positive Lyme disease test to account for fever. Patient also has no heart blocks on EKG which may occur if Lyme disease has cardiovascular involvement Patient also noted to have slow gait and reportedly "shuffling gait" at home. CT head imaging normal: There is no CT evidence of acute cortical infarction. There is no evidence of midline shift. There is no acute hemorrhage. No calvarial fractures are visualized. There are minimal white matter hypodensities likely on a small vessel basis. There is no evidence of pathologic ventricular dilatation. There is no evidence of acute sinusitis Creatine kinase 1640 noted to be elevated. IV hydration given. Encourage oral intake. Stop Pravastatin for now. Patient is not in rhabdomyolysis as creatinine normal and has no abnormal urine Serum potassium 3.4. Oral potassium given Disposition: discharge home with diagnosis of early stage Lyme disease and prescription of 100 mg BID of doxycycline for 28 days. Patient to follow up with primary care Dr. Cruz on Thu01/14/17 at 1:05 PM Current Hospital Diet Patient's current hospital diet: Regular Diet Discharge Diet Recommended Diet: Regular Diet Procedures Procedures Performed: echocardiogram Pending Studies Studies pending at discharge: yes List of pending studies: anaplasmosis serologies Laboratory Results 01/12/17 05:19 Red Blood Count 4.59, Mean Corpuscular Volume 88.9, Mean Corpuscular Hemoglobin 29.8, Mean Corpuscular Hemoglobin Concent 33.6, Mean Platelet Volume 9.5, Neutrophils (%) (Auto) 83.6, Lymphocytes (%) (Auto) 10.3, Monocytes (%) (Auto) 5.6, Eosinophils (%) (Auto) 0.0, Basophils (%) (Auto) 0.1, Neutrophils # (Auto) 5.77, Lymphocytes # (Auto) 0.71, Monocytes # (Auto) 0.39, Eosinophils # (Auto) 0.00, Basophils # (Auto) 0.01 01/12/17 05:19 Test 01/11/17 13:55 01/11/17 14:02 01/11/17 14:37 01/11/17 15:54 Magnesium Level 2.3 mg/dl (1.8-2.4) Chemistry Specimen Hemolysis Bedside Lactic Acid Venous 1.83 mmol/L (0.90-1.70) Prothrombin Time 11.5 SECONDS (9.0-12.0) Prothromb Time International Ratio 1.1 (0.9-1.1) Activated Partial Thromboplast Time 29.4 SECONDS (21.0-31.0) Partial Thromboplastin Ratio 1.1 Total Creatine Kinase 1620 U/L (39-308) Lyme Disease IgG Antibody NEG (NEG) Urine Color DK YELLOW Urine Appearance CLEAR (CLEAR) Urine pH 5.5 (4.5-7.5) Urine Specific [place] 1.034 (1.000-1.030) Urine Protein NEG (NEG) Urine Glucose (UA) NEG (NEG) Urine Ketones TRACE (NEG) Urine Occult Blood NEG (NEG) Urine Nitrite NEG (NEG) Urine Bilirubin NEG (NEG) Urine Urobilinogen NEG (NEG) Urine Leukocyte Esterase NEG (NEG) Urine WBC (Auto) 1-5 /hpf (0-5) Urine RBC (Auto) 5-10 /hpf (0-4) Urine Hyaline Casts (Auto) 1-5 /lpf (0-5) Urine Epithelial Cells (Auto) 10-20 /lpf (0-5) Urine Bacteria (Auto) NEG (NEG) Test 01/12/17 05:19 01/12/17 11:36 01/12/17 11:42 White Blood Count 6.91 K/uL (4.8-10.8) Red Blood Count 4.59 M/uL (4.7-6.1) Hemoglobin 13.7 g/dL (14.0-18.0) Hematocrit 40.8 % (42-52) Mean Corpuscular Volume 88.9 fL (80-100) Mean Corpuscular Hemoglobin 29.8 pg (25-34) Mean Corpuscular Hemoglobin Concent 33.6 g/dl (32-36) Platelet Count 118 K/uL (130-400) Mean Platelet Volume 9.5 fL (7.4-10.4) Neutrophils (%) (Auto) 83.6 % Lymphocytes (%) (Auto) 10.3 % Monocytes (%) (Auto) 5.6 % Eosinophils (%) (Auto) 0.0 % Basophils (%) (Auto) 0.1 % Neutrophils # (Auto) 5.77 K/uL (1.4-6.5) Lymphocytes # (Auto) 0.71 K/uL (1.2-3.4) Monocytes # (Auto) 0.39 K/uL (0.11-0.59) Eosinophils # (Auto) 0.00 K/uL (0-0.5) Basophils # (Auto) 0.01 K/uL (0-0.2) RDW Standard Deviation 46.0 fL (36.4-46.3) RDW Coefficient of Variation 14.1 % (11.5-14.5) Immature Granulocyte % (Auto) 0.4 % Immature Granulocyte # (Auto) 0.03 K/uL (0.00-0.02) Anion Gap 8.0 mmol/L (3-11) Est Creatinine Clear Calc Drug Dose 83.6 ml/min Estimated GFR () 89.4 Estimated GFR (Non- 77.1 BUN/Creatinine Ratio 27.8 (10-20) Calcium Level 7.8 mg/dl (8.5-10.1) Total Bilirubin 0.5 mg/dl (0.2-1) Aspartate Amino Transf (AST/SGOT) 81 U/L (15-37) Alanine Aminotransferase (ALT/SGPT) 35 U/L (12-78) Alkaline Phosphatase 76 U/L (45-117) Total Protein 6.5 gm/dl (6.4-8.2) Albumin 3.2 gm/dl (3.4-5.0) Globulin 3.3 gm/dl (2.5-4.0) Albumin/Globulin Ratio 1.0 (0.9-2) Bedside Glucose 126 mg/dl (70-99) Date/Time Source Procedure Growth Status 01/11/17 13:55 Blood Blood Culture Pending Received Medical Emergencies . Who to Call and When: Medical Emergencies: If at any time you feel your situation is an emergency, please call 911 immediately. . Non-Emergent Contact Non-Emergency issues call your: Primary Care Provider . . "Provider Documentation" section prepared by Andrew Ortega. . VTE Core Measure Inpt VTE Proph given/why not?: Unfractionated heparin SQ
--- NOTE | 2017-01-12 15:44 | Discharge Summary ---
Discharge Summary Date of Service Jan 12, 2017. Discharge Summary Admission Date: Jan 11, 2017 at 16:51 Discharge Date: Jan 12, 2017 Discharge Disposition: Home Principal Diagnosis: lyme disease, weakness, hypokalemia Medication Reconciliation New Medications: Doxycycline Hyclate (Doxycycline Hyclate) 100 Mg Cap 100 MG PO BID for 28 Days, #56 CAP Continued Medications: Aripiprazole (Abilify) 2 Mg Tab 2 MG PO HS, TAB Bupropion HCl (Bupropion HCl Sr) 150 Mg Tabcr 150 MG PO BID Cholecalciferol (Vitamin D) 2,000 Unit Tab 1 TAB PO QAM Docusate Sodium (Docusate Sodium) 100 Mg Tab 1 TAB PO BID Meloxicam (Mobic) 7.5 Mg Tab 7.5 MG PO DAILY, TAB Omeprazole (Prilosec) 20 Mg Cap 20 MG PO BID, CAP Polyethylene Glycol 3350 (Miralax) 1 Pow Pow 2 DOSE PO BID Ropinirole (Requip) 2 Mg Tab 2 MG PO TID Sertraline (Zoloft) 100 Mg Tab 100 MG PO HS, TAB Discontinued Medications: Pravastatin Sodium (Pravastatin Sodium) 40 Mg Tab 40 MG PO QAM Admission Information HPI (per Admitting provider): This is a 71 year old M who fell from a chair after feeling disoriented while bending down to pick and shovel man a piece of paper. Patient denies chest pain of shortness of breath or headache preceding the disorientation. Patient denies striking his head on the floor. As per patient and his , his had difficulty picking him up from the ground. Denies loss of consciousness. Patient was able to roll over but unable to immediately get up off of the floor because he did not feel his arms were strong enough to push up off of the floor. This situation lasted fro around one hour before patient was able to get up somehow. Patient appears to be often referring to his about his recent activities. His collaborates that patient appeared to be having more shuffling gait this morning before the incident took place however this shuffling is chronic. Patient denies personal of family history of Parkinson's Disease. Patient has history of prostate removed due to prostate cancer and has history of urinary incontinence however denies abdominal pain or pain with urinating. Patient reports that the day before he might have over exerted himself while cutting bushes. He also reported that 4 days ago he was outdoors and had a tick bite of left shoulder and that he removed the tick. In the ED he was found to have an elevated temperature of 38.5 F and was given Zosyn 4.5 grams. As per ED physician, patient's source of fever is unclear and that Zosyn was started for broad coverage. Emergency room physician sent Lyme disease antibodies. Patient also received IV fluids in the ED. Orthostatics checked in the ED did not show orthostatic hypotension but this may have been a non- informative test due to already being given IV fluids. Physical Exam (per Admitting): General Appearance: no apparent distress Head: normocephalic, atraumatic Eyes: normal inspection, EOMI, sclerae normal ENT: hearing grossly normal, pharynx normal Neck: supple, no JVD, no carotid bruits, trachea midline Respiratory/Chest: chest non-tender, lungs clear, normal breath sounds, no respiratory distress, no accessory muscle use Cardiovascular: regular rate, rhythm, no edema, no JVD, no murmur, normal peripheral pulses Abdomen/GI: normal bowel sounds, soft, no organomegaly Back: no muscle spasm Extremities/Musculoskelatal: normal inspection, no calf tenderness, no pedal edema, normal range of motion Neurologic/Psych: no motor/sensory deficits, alert, oriented x 3 Skin: + pertinent finding (red circular adam near right shoulder, no ring lesion) Hospital Course This is a 71 year old M diagnosed with early exposure to Lyme Disease as serum IgM is positive but serum IgG negative. Patient initially given systemic IV antibiotics Zosyn in the ED on 01/12/17, and then doxycycline 100 mg BID for early lyme disease with IV Ceftriaxone 2000 mg doses in case patient may be at risk for cardiovascular of neurological involvement lyme disease. As per assessment by infectious disease physician, the IV ceftriaxone can be discontinued and patient continue on doxycycline 100 mg BID for 28 days. Infectious disease physician also sent serologies to rule out anaplasmosis but notes that even if this test was positive, patient would still be treated with doxycycline and that patient can be discharged home with doxycycline Conclusions on the Echo report "The left ventricular wall motion is normal. Ejection Fraction = 55-60%. There is mild aortic valve sclerosis , with mild focal calcification of the left coronary cusp of the aortic valve. There is no significant aortic regurgitation. Aortic stenosis is absent. There is a nonmobile echodensity of the atrial aspect of the mitral valve leaflet. There is mild mitral regurgitation. There is no prior recent echocardiogram study performed at [facility] or [facility] for direct comparison. Echocardiographic findings on the mitral valve and aortic valve could be due to age related calcification. If clinical suspicion for endocarditis remains high consider AYAKA" Internal medicine hospitalist have discussed with cardiology Dr. Parikh who had written the above echo report and have concluded that endocarditis is not likely source of fever given positive Lyme disease test to account for fever. Patient also has no heart blocks on EKG which may occur if Lyme disease has cardiovascular involvement Patient also noted to have slow gait and reportedly "shuffling gait" at home. CT head imaging normal: There is no CT evidence of acute cortical infarction. There is no evidence of midline shift. There is no acute hemorrhage. No calvarial fractures are visualized. There are minimal white matter hypodensities likely on a small vessel basis. There is no evidence of pathologic ventricular dilatation. There is no evidence of acute sinusitis Creatine kinase 1640 noted to be elevated. IV hydration given. Encourage oral intake. Stop Pravastatin for now. Patient is not in rhabdomyolysis as creatinine normal and has no abnormal urine Serum potassium 3.4. Oral potassium given Disposition: discharge home with diagnosis of early stage Lyme disease and prescription of 100 mg BID of doxycycline for 28 days. Patient to follow up with primary care Dr. Cruz on Thu01/14/17 at 1:05 PM Total time spent on discharge = 40 minutes This includes examination of the patient, discharge planning, medication reconciliation, and communication with other providers. Discharge Instructions see above
[2017-01-12 15:45] VITALS: BP 111/69; PULSE 78; TEMP 36.9; O2SAT 96
[2017-01-12] MEDS ORDERED: CEFTRIAXONE SOD INJ 2,000 MG in DEXTROSE 5% 50ML 50 ML IV SCH (21:00)
[2017-01-15 03:36] LABS: 18KDIGG BAND NONREACTIVE (NONREACTIVE); 23KDIGG BAND NONREACTIVE (NONREACTIVE); 23KDIGM BAND NONREACTIVE (NONREACTIVE); 28KDIGG BAND NONREACTIVE (NONREACTIVE); 30KDIGG BAND NONREACTIVE (NONREACTIVE); 39KDIGG BAND NONREACTIVE (NONREACTIVE); 39KDIGM BAND NONREACTIVE (NONREACTIVE); 41KDIGG BAND REACTIVE (NONREACTIVE); 41KDIGM BAND NONREACTIVE (NONREACTIVE); 45KDIGG BAND NONREACTIVE (NONREACTIVE); 58KDIGG BAND NONREACTIVE (NONREACTIVE); 66KDIGG BAND NONREACTIVE (NONREACTIVE); 93KDIGG BAND NONREACTIVE (NONREACTIVE)
[2017-01-15 18:38] LABS: ANAPLASMA PHAGOCYTOPHIL IGG <1:64 (<1:64); ANAPLASMA PHAGOCYTOPHIL IGM <1:20 (<1:20); EHRLICHIA CHAFF IGG AB <1:64 (<1:64); EHRLICHIA CHAFF IGM AB <1:20 (<1:20)
== END 2017-01-12 16:33 | disposition home or self-care (01) ==
LOC: EDBD 13:13 → C.EDA 13:14 → C.MED 16:51 → ENRESERV 17:02
PROVIDERS: ADMIT Hospitalist; ATTEND Hospitalist
DX: A69.20 Lyme disease, unspecified (principal); R53.1 Weakness; E87.6 Hypokalemia; W07.XXXA Fall from chair, initial encounter; Z90.89 Acquired absence of other organs; Z80.42 Family history of malignant neoplasm of prostate; Z82.49 Family history of ischemic heart disease and other diseases of the circulatory system

== ENCOUNTER → 2017-03-09 | Outpatient (CLI) | payer MEDICARE ==
[~2017-03-09] MED LIST changes: -ABL/5 PO; -ACET-749 PO; +ARIP2TAB3 PO; -BUPR100T8 PO; +DXY100 PO; -KETO2SHA5 TOP; +MELO7.5T5 PO; -PRAV40TA2 PO; +WLLSR150 PO
--- NOTE | 2017-03-09 16:00 | DIAGNOSTIC IMAGING REPORT ---
MRI LUMBAR SPINE W/O CONTRAST CLINICAL HISTORY: LUMBAR STENOSIS LOW BACK PAIN WITH RIGHT LEG RADICULOPATHY. HISTORY OF PROSTATE CARCINOMA. TECHNIQUE: Sagittal and axial T1, T2 and STIR images were obtained. COMPARISON STUDY: No previous studies for comparison. OBSERVATIONS: The vertebral bodies and posterior elements appear intact. There is no abnormal bony signal present to suggest a marrow replacement process. L1-2: No disc protrusions or extrusions. No evidence of spinal canal or neural foraminal compromise. L2-3: There is a circumferential disc bulge and small central disc protrusion. There is mild spinal stenosis. L3-4: There is a circumferential disc bulge with minimal spinal canal narrowing. L4-5: There is marked disc degeneration. There is a prominent right lateral disc bulge with presumed overlying osteophytic spurs. There is minor right-sided foraminal narrowing. L5-S1: No disc protrusions or extrusions. No evidence of spinal canal or neural foraminal compromise. The conus medullaris and cauda equina appear normal. IMPRESSION: 1. Multilevel spondylitic changes. Mild spinal stenosis the L2-3 level, minimal spinal canal narrowing at the L3-4 level, and minor right-sided foraminal narrowing at the L4-5 level. Electronically signed by: Luis Gomez M.D. 03/09/2017 3:59 PM Dictated Date/Time: 03/09/2017 3:55 PM
== END | disposition home or self-care (01) ==
LOC: C.MRIBC 14:34
PROVIDERS: ATTEND Orthopaedic Surgery Orthopaedic Surgery of the Spine
DX: M48.061 Spinal stenosis, lumbar region without neurogenic claudication (principal); M47.817 Spondylosis without myelopathy or radiculopathy, lumbosacral region

== ENCOUNTER → 2017-03-11 | Outpatient (CLI) | payer MEDICARE ==
[~2017-03-11] MED LIST changes: +PRAV20TA PO
--- NOTE | 2017-03-12 06:40 | SPLIT NIGHT TECHNICIAN REPORT ---
[facility] Split Night Polysomnogram - Administrative Specialist Report Study date: 03/11/2017 Referring Physician: Dr. Murphy Name: MIMI MCCULLOUGH Administrative Specialist: Silvana Noriega [facility] Date of : 1945 Height: 71 years, Height 5' 9" Sex: Male Weight: 231 lbs Age: 71 BMI: Medications: 34.11 MELOXICAM 16 MG, OXYBUTYNIN 5 MG, OMEPRAZOLE 20 MG, COLACE 100 MG, ROPINIROLE 2 MG, ABILIFY 2 MG, SERTRALINE 100 MG, TYLENOL 500 MG, BUPROPION 150 MG, VIT D 2000 UNITS, KETOCONAZOLE 2%, MIRALAX Patient History 71 yr-old male here for a baseline/split study. He has a history of snoring, witnessed apneas, and daytime sleepiness. His [place] scale is 17. The test was started on room air. ETCO2 testing is included in this study. Room 1 Parameters Monitored NPSG: E1-M2, E2-M1, Fp1-M2, Fp2-M1, F3-M2, F4-M2, F4-M1, C3-M2, C4-M2, C4-M1, O1-M2, O2-M2, O2-M1, T3-M2, T4-M1, P3-M2, P4-M1, CHIN1, CHIN2, HR, EKG, Legs, PFLOW, SNOR, FLOW, CFLOW, Tidal Volume, THOR, ABDO, SpO2, PLTH, CPRESS, ETCO2 Wave, ETCO2, pH SLEEP SUMMARY DATA DIAGNOSTIC TREATMENT Lights Out: 10:46:20 PM 1:30:50 AM Lights On: 1:07:50 AM 5:22:50 AM Total Recording Time (TRT): 141.5 min. 232.0 min. Total Sleep Time (TST): 132.5 min. 211.5 min. NREM Time: 112.5 min. 205.0 min. REM Time: 20.0 min. 6.5 min. Sleep Period Time (SPT): 139.5 min. 221.5 min. Sleep Efficiency (SE): 94 % 91 % Sleep Latency: 2.0 min. 4.5 min. Arousal Index: 16.8 7.9 PAP Treatment Levels: 4, 6, 7, 8 * Optimal Pressure(s) SLEEP STAGING DATA DIAGNOSTIC TREATMENT Duration (min) TST % Duration (min) TST % Stage Wake: 9.0 min. -- 20.5 min. -- WASO: 7.0 min. -- 10.0 min. -- NREM: 112.5 min. 85 % 205.0 min. 97 % Stage N1: 11.0 min. 8 % 19.0 min. 9 % Stage N2: 89.0 min. 67 % 183.0 min. 87 % Stage N3: 12.5 min. 9 % 3.0 min. 1 % REM: 20.0 min. 15 % 6.5 min. 3 % POSITIONAL DATA Event Count Index Event Count Index Supine: 41 17.2 33 12.2 Supine NREM: 28 13.3 30 12.0 Supine REM: 13 39 3 18 Non-Supine: N/A N/A 0 0.0 Non-Supine NREM: N/A N/A 0 0.0 Non-Supine REM: N/A N/A N/A N/A AROUSAL SUMMARY DATA: Event Count Index Event Count Index Apnea Arousals: 0 0.9 0 0.0 Hypopnea Arousals: 3 1.4 2 0.6 Snore Arousals: 6 2.7 1 0.3 PLM Arousals: 4 1.8 17 4.8 Non-Specific Arousals: 21 9.5 8 2.3 Total Arousals: 37 16.8 28 7.9 MYOCLONUS (PLM) Event Count Index Event Count Index PLM: 88 39.8 86 24.4 PLM AROUSAL: 4 1.8 17 4.8 PLM W/O AROUSAL 88 39.8 69 19.6 PLM W/RESP EVENT 3 0.0 0 0.0 MYOCLONUS (PLM) Event Count Index Event Count Index LM: 1 6.8 35 9.9 LM AROUSAL: 1 0.5 0 0.0 LM W/O AROUSAL LM W/RESP EVENT LM NON SPECIFIC 92 41.7 99 28.1 HEART RATE DATA DIAGNOSTIC TREATMENT Sleep (bpm): 70 67 REM (bpm): 93 93 NREM (bpm): 92 93 Tachycardia Count: 0 0 Tachycardia Duration: 0.00 0 Bradycardia Count: 0 0 Bradycardia Duration: 0.00 0 DIAGNOSTIC PORTION TREATMENT PORTION RESPIRATORY DATA Event Count Index Event Count Index AHI: -- 17.2 -- 8.8 RDI: -- 18.6 -- 9 Obstructive Apnea: 2 0.9 0 0.0 Central Apnea: 0 0.0 0 0.0 Mixed Apnea: 0 0.0 0 0.0 Hypopnea: 36 16.3 31 8.8 RERA: 3 1.4 2 0.6 Total Apneas: 2 0.9 0 0.0 RESPIRATORY DATA REM NREM SLEEP REM NREM SLEEP Supine Position: Obstructive Apneas: 2 0 2 0 0 0 Central Apneas: 0 0 0 0 0 0 Mixed Apneas: 0 0 0 0 0 0 Hypopneas: 11 25 36 2 29 31 RERA 0 3 3 1 1 2 Total Supine Events: 13 28 41 3 30 33 Supine AHI: 39 13.3 17.2 18 12.0 12.2 Supine RDI: 39.0 14.9 18.6 27.7 12.4 13.0 REM NREM SLEEP REM NREM SLEEP Non-Supine Position: Obstructive Apneas: N/A N/A N/A N/A 0 0 Central Apneas: N/A N/A N/A N/A 0 0 Mixed Apneas: N/A N/A N/A N/A 0 0 Hypopneas: N/A N/A N/A N/A 0 0 RERA N/A N/A N/A N/A 0 0 Total Supine Events: N/A N/A N/A N/A 0 0 Supine AHI: N/A N/A N/A N/A 0.0 0.0 Supine RDI: N/A N/A N/A N/A 0.0 0.0 OXYGEN DESTAURATION DATA: Event Count Index Event Count Index REM Desaturations: 17 51.0 1 9.2 NREM Desaturations: 29 15.5 33 9.7 SNORE DATA DIAGNOSTIC TREATMENT Snore Time: 18.1 1:35:20 AM Snore TST%: 7 9 Snore Arousal Count: 6 1 Snore Arousal Index: 2.7 0.3 Desaturation Event Summary: Minimum %SpO2 Event Count Mean/Min/Max Duration(sec.) Desaturation Index % Time In Bed > 90 83 24.9 / 7.0 / 56.3 14.5 93.8 86 - 90 0 N/A 0.0 6.2 81 - 85 0 N/A 0.0 0.0 76 - 80 0 N/A 0.0 0.0 71 - 75 0 N/A 0.0 0.0 66 - 70 0 N/A 0.0 0.0 61 - 65 0 N/A 0.0 0.0 56 - 60 0 N/A 0.0 0.0 51 - 55 0 N/A 0.0 0.0 < 50 0 N/A 0.0 0.0 OXYGEN SATURATION DATA DIAGNOSTIC TREATMENT SpO2 Mean Sleep: 92 % 93 % SpO2 Mean REM: 93 % 93 % SpO2 Mean NREM: 92 % 93 % SpO2 Minimum Sleep: 88 % 87 % SpO2 Minimum REM: 88 % 88 % SpO2 Minimum NREM: 88 % 87 % Time Below 90% (TST): 1.6 1.4 Time Below 88% (TST): 0.0 0.2 Total REM NREM Awake <50% 0.0 min. 0.0 min. 0.0 min. 0.0 min. 51 - 60% 0.0 min. 0.0 min. 0.0 min. 0.0 min. 61 - 70% 0.0 min. 0.0 min. 0.0 min. 0.0 min. 71 - 80% 0.0 min. 0.0 min. 0.0 min. 0.0 min. 81 - 90% 22.7 min. 2.6 min. 18.9 min. 1.2 min. 91 - 100% 343.1 min. 23.8 min. 297.6 min. 21.7 min. Average 93 93 93 94 Minimum SpO2 87 88 87 89 Desaturation Event Index 13.3 40.8 11.7 10.2 # Desat. Events below 89% 7 3 4 N/A Time(%) with Saturation below 89% 0.3 0.1 0.1 0.0 Time(min.) with Saturation below 89% 0.9 0.5 0.5 0.0 Recording Administrative Specialist Comments: Mr. Mccullough slept in the supine and right positions. No cardiac arrhythmias were noted. PLMs were noted. No bruxism noted. Snoring was noted and scored as a 2 on a scale of 1 through 5. (0=no snoring, 5=snoring loud enough to be heard through a closed door or down the [address]yman way) At 1:30, he met specific Split-Night criteria during the diagnostic portion of this study. CPAP was initiated at +4 CMH2O and up-titrated to a level of +8 CMH2O, Cflex 2 which nearly eliminated all respiratory events and snoring. An AirFit 10 full face mask size medium from [employer] was used during titration. He awoke to use the restroom two times during the night. Mr. Mccullough stated that he slept a little better than usual. The final report will be interpreted and signed by a sleep physician. The completed physician report will then be placed in the patient medical record. Therapy Event: Therapy (cm H20) 0 4 6 7 8 Total Time at Pressure (min.) 141.5 27.2 15.0 110.9 78.9 TST at Pressure (min.) 132.5 22.7 15.0 108.9 64.9 # Periods 1 1 1 1 1 Sleep Onset (min.) 2.0 4.5 0.0 0.0 0.0 REM Onset (min.) 112.5 N/A N/A 77.8 N/A Sleep Efficiency % 93 83 100 98 82 Wakefulness (%) 6.4 16.6 0.0 1.8 17.8 Wakefulness (min.) 9.0 4.5 0.0 2.0 14.0 NREM 1 (%) 7.8 7.4 0.0 8.1 10.1 NREM 1 (min.) 11.0 2.0 0.0 9.0 8.0 NREM 2 (%) 62.9 76.1 100.0 84.2 68.3 NREM 2 (min.) 89.0 20.7 15.0 93.4 53.9 NREM 3 (%) 8.8 0.0 0.0 0.0 3.8 NREM 3 (min.) 12.5 0.0 0.0 0.0 3.0 REM (%) 14.1 0.0 0.0 5.9 0.0 REM (min.) 20.0 0.0 0.0 6.5 0.0 # Arousals 37 2 0 13 13 Arousal Index 16.8 5.3 0.0 7.2 12.0 # Snore 964 118 225 468 93 Snore Index 436.5 312.4 897.9 257.8 86.0 AHI 17.2 26.5 35.9 6.6 0.0 AHI Supine 17.2 26.5 35.9 6.6 0.0 AHI Non-Supine N/A N/A N/A N/A 0.0 NREM AHI 13.3 26.5 35.9 5.9 0.0 REM AHI 39.0 N/A N/A 18.5 N/A RDI 18.6 26.5 35.9 7.7 0.0 # Obstructive 2 0 0 0 0 # Central Ap 0 0 0 0 0 # Mixed 0 0 0 0 0 # Hypopneas 36 10 9 12 0 RERAS 3 0 0 2 0 Total Respiratory Events 41 10 9 14 0 Time Below SpO2 89.00% (min.) 0.4 0.4 0.0 0.1 0.0 Mean NREM SpO2 (%) 92 92 92 93 94 Mean REM SpO2 (%) 93 N/A N/A 93 N/A Mean Sleep SpO2 (%) 92 92 92 93 94 Min NREM SpO2 (%) 88 87 89 89 90 Min REM SpO2 (%) 88 N/A N/A 88 N/A Position Supine (min.) 132.5 22.7 15.0 108.9 5.4 Position Non-supine (min.) 0.0 0.0 0.0 0.0 59.4 LM Index Sleep 46.6 23.8 4.0 27.0 57.4 LM Index NREM 52.3 23.8 4.0 27.5 57.4 LM Index REM 15.0 N/A N/A 18.5 N/A Mean Heart Rate (bpm) 70 67 66 68 65 Min Heart Rate (bpm) 65 63 63 64 59 CPAP REPORT Therapy Detail Time / Page # Comment CPAP 4 cm H2O Full Face Mask Flex Pressure Relief Humidifier on 1:30:22 AM / pg. 632 HE HAS BEEN ASLEEP FOR OVER 2 HOURS AND HIS AHI IS ABOVE 5 ( STATED PER DOCTOR'S ORDER) CPAP 6 cm H2O Full Face Mask Flex Pressure Relief Humidifier on 1:58:00 AM / pg. 687 INCREASED FOR HYPOPNEAS CPAP 7 cm H2O Full Face Mask Flex Pressure Relief Humidifier on 2:13:02 AM / pg. 717 INCREASED FOR HYPOPNEAS CPAP 8 cm H2O Full Face Mask Flex Pressure Relief Humidifier on 4:03:58 AM / pg. 939 INCREASED FOR MORE HYPOPNEAS
--- NOTE | 2017-03-12 17:42 | POLYSOMNOGRAPH REPORT ---
CLINICAL DATA: A 71-year-old male with a BMI of 34.1, referred by Dr. Murphy for a sleep study. He has snoring, apnea, and daytime sleepiness. His [place] sleepiness score was 17/24. This was a split night study. SLEEP ARCHITECTURE: For the diagnostic portion of the study, sleep period time was 139.5 minutes. Total sleep time was 132.5 minutes divided between 112.5 minutes of non-REM sleep and 20 minutes of REM sleep. Sleep latency was 2 minutes. Sleep efficiency was 94%. Sleep consisted of stage N1 8%, stage N2 67%, stage N3 9%, and REM 15%. For the treatment portion of the study, sleep period time was 221.5 minutes. Total sleep time was 211.5 minutes divided between 205 minutes of non-REM sleep and 6.5 minutes of REM sleep. Sleep latency was 4.5 minutes. Sleep efficiency was 91%. Sleep consisted of stage N1 9%, stage N2 87%, stage N3 1%, and REM 3%. AROUSAL DATA: Prior to treatment, 37 arousals were recorded for an index of 16.8 per hour. During treatment, 28 arousals were recorded for an index of 7.9 per hour. PERIODIC LIMB MOVEMENT DATA: Prior to treatment, 92 limb movements of sleep were noted for an index of 41.7 per hour. During treatment, 99 limb movements during sleep were noted for an index of 28.1 per hour. EKG: Heart rates ranged from 67-93 beats per minute. No arrhythmias were noted. RESPIRATORY DATA: Moderate sleep apnea was seen prior to treatment. The AHI was 17.2. The RDI was 18.6. There were 2 obstructive apneic episodes, 36 hypopneic episodes and 3 RERAs recorded. The average AHI during treatment was 8.8. There were 31 hypopneic episodes recorded. OXIMETRY DATA: No significant hypoxemia was seen. Oxygen luke was 87% during non-REM sleep. Mean saturation was 93%. BUSINESS CONTINUITY CONSULTANT'S COMMENTS: The patient slept in the supine and right positions. Snoring was mild to moderate, rated 2 on a scale of 1-5. At 1:30 a.m., he met split night criteria. CPAP was started using an AirFit F10 full face mask size medium from [employer]. He was started on CPAP and titrated up to his final pressure setting of 8 cm of water pressure. At his final pressure setting, he slept for just under 65 minutes with an AHI of 0. IMPRESSION: Moderate sleep apnea with a diagnostic apnea/hypopnea index of 17.2 and a respiratory disturbance index of 18.6 corrected with CPAP 8 cm water pressure C-Flex 2, AirFit F10 full face mask size medium from [employer]. RECOMMENDATIONS: The patient should be started on the above noted treatment regimen and seen back in followup within 90 days to document efficacy and compliance. URSZULAD
== END | disposition home or self-care (01) ==
LOC: C.NEUR 20:00
PROVIDERS: ATTEND Internal Medicine
DX: G47.33 Obstructive sleep apnea (adult) (pediatric) (principal)

== ENCOUNTER → 2017-04-16 | Outpatient (CLI) | payer MEDICARE ==
[~2017-04-16] MED LIST changes: -OMEP20CA9 PO
[2017-04-16 13:46] LABS: BLOOD UREA NITROGEN 22 mg/dl (7-18); CREATININE 1.02 mg/dl (0.60-1.40)
== END | disposition home or self-care (01) ==
LOC: C.LABBC 11:40
PROVIDERS: ATTEND Radiology Diagnostic Radiology
DX: Z01.812 Encounter for preprocedural laboratory examination (principal); C61 Malignant neoplasm of prostate

== ENCOUNTER → 2017-04-17 | Outpatient (CLI) | payer MEDICARE ==
[~2017-04-17] MED LIST changes: +GADAVIST IV PRN
--- NOTE | 2017-04-17 08:36 | DIAGNOSTIC IMAGING REPORT ---
MRI OF THE LUMBAR SPINE COMBO CLINICAL HISTORY: Lumbar radiculopathy. COMPARISON STUDY: MRI of the lumbar spine dated 03/09/2017. TECHNIQUE: MRI of the lumbar spine is performed utilizing various T1 and T2-weighted sequences in the axial and sagittal planes. Contrast-enhanced sequences are acquired following the IV administration of 10 cc of Gadavist. FINDINGS: Lumbar spine: Vertebral body height and alignment are maintained throughout the lumbar spine. Marrow signal intensity is mildly heterogeneous. The transverse and spinous processes appear intact. Tiny anterior osteophytes are seen throughout. Chronic degenerative endplate change is seen at L4-L5. A hemangioma is seen in the body of S2. No destructive osseous lesion is suspected. Intervertebral discs: Degenerative disc desiccation is seen throughout the lumbar spine. Moderate to severe loss of height is present at L4-L5. Only mild loss of height is seen at the remaining lumbar levels. Spinal cord: The visualized spinal cord is normal in morphology and signal intensity. The conus medullaris terminates at the T12-L1 interspace. The nerve roots of the cauda equina are normal as imaged. No abnormal enhancement is seen on the postcontrast series. L1-L2: There is minimal disc bulge eccentric to the left. This causes minimal left-sided subarticular stenosis. The central canal and neural foramina are patent. L2-L3: There is broad-based posterior disc bulge and annular fissure. In conjunction with hypertrophy of the ligamentum flavum there is mild central canal stenosis at this level with a minimum AP diameter of 8 mm. This causes bilateral subarticular stenosis and may abut the exiting bilateral L2 and the transiting left L3 nerve root. L3-L4: There is minimal disc bulge eccentric to the left. The central canal and neural foramina are patent. Facet arthropathy is of no consequence. L4-L5: There is a posterior disc osteophyte complex. Annular fissure is noted. There is no significant acquired compromise of the central canal at this level. Osteophytosis and disc bulge eccentric to the right may impinge on the exiting L4 nerve root. Facet arthropathy is of no consequence. L5-S1: The central canal and neural foramina are patent. Facet arthropathy is of no consequence. Sacrum: A hemitransitional left lumbosacral segment is seen on the left. The sacrum is normal in marrow signal intensity. Soft tissues: There is mild fatty atrophy of the paraspinous musculature. The partially imaged retroperitoneal structures are grossly unremarkable, but incompletely assessed. IMPRESSION: 1. There is no large disc herniation or high-grade central canal stenosis. These findings have not significantly changed from 03/09/2017. 2. Mild central canal stenosis is seen at L2-L3. 3. Spondylotic change at additional levels as above. See discussion for detailed level by level analysis. 4. No destructive bony lesion is suspected. Dictated: 04/17/2017 8:15 AM Transcribed: 04/17/2017 8:36 AM [email or web address]_[email or web address] Electronically signed by: Sanya Victoria M.D. 04/17/2017 9:08 AM Dictated Date/Time: 04/17/2017 8:15 AM
== END | disposition home or self-care (01) ==
LOC: C.MRIBC 06:59
PROVIDERS: ATTEND Physician Assistant Medical
DX: M54.16 Radiculopathy, lumbar region (principal); Z85.46 Personal history of malignant neoplasm of prostate